=== PATIENT | female | born 1955 | race Caucasian/White ===

== ENCOUNTER 2022-01-01 19:56 | Inpatient (IN) ==
[2022-01-01 20:20] LABS: Basophils # (auto) 0.05 K/uL (0-0.2); Basophils % (auto) 0.3 %; Eosinophils # (auto) 0.37 K/uL (0-0.5); Eosinophils % (auto) 2.3 %; Hematocrit (blood only) 43.4 % (37-47); Hemoglobin 14.7 g/dL (12.0-16.0); Immature Granulocytes # (auto) 0.05 K/uL (0.00-0.02); Immature Granulocytes % (auto) 0.3 %; Lymphocytes # (auto) 3.39 K/uL (1.2-3.4); Lymphocytes % (auto) 20.8 %; Mean Corpuscular Hemoglobin 30.9 pg (25-34); Mean Corpuscular Hgb Conc 33.9 g/dL (32-36); Mean Corpuscular Volume 91.4 fL (80-100); Mean Platelet Volume 9.8 fL (7.4-10.4); Monocytes # (auto) 0.83 K/uL (0.11-0.59); Monocytes % (auto) 5.1 %; Neutrophils # (auto) 11.58 K/uL (1.4-6.5); Neutrophils % (auto) 71.2 %; Platelet Count 240 K/uL (130-400); RDW Coefficient of Variation 14.2 % (11.5-14.5); RDW Standard Deviation 47.9 fL (36.4-46.3); Red Blood Count 4.75 M/uL (4.2-5.4); White Blood Count 16.27 K/uL (4.8-10.8)
[2022-01-01 20:35] LABS: Partial Thromboplastin Ratio 0.9; Partial Thromboplastin Time 24.9 Seconds (21.0-31.0); Prothrombin Time 10.6 Seconds (9.0-12.0)
[2022-01-01] MEDS ORDERED: NITROGLYCERIN SL 0.4 MG/TAB TAB SL STA (20:36)
--- NOTE | 2022-01-01 20:40 | Emergency Department Note ---
Impression & Plan Atypical chest pain, Hypokalemia, Elevated lipase, Hypomagnesemia ED Provider Note Provider: Michael Rivera MD DATE OF SERVICE: 01/01/2022 CHIEF COMPLAINT: Chest, arm, throat pain HISTORY OF PRESENT ILLNESS: Patient is a 66-year-old female past medical history of hypertension, hyperlipidemia, and diabetes presenting here today reporting developing yesterday pain sensation in her bilateral neck and throat. States today around lunchtime she did experience significant pressure across her c entral chest in addition as well as some in the arms. States it does not hurt to move or take a deep breath. She denies any falls or trauma. Denies any new leg swelling although has some mild chronic right leg swelling. Patient denies a significant sore throat or fevers. Denies a history of similar. Patient states she does unfortunately continue to smoke. Patient states she did take 2 regular strength aspirin earlier today without change in symptoms. No significant shortness of breath reported. Patient denies a cardiac history and states she last had a stress test in 2012 although symptoms were different at that time. No exertional symptoms reported. REVIEW OF SYSTEMS: A total of 10 review of systems was obtained and negative except as stated above in the HPI. PAST MEDICAL HISTORY: As noted above MEDICATIONS: Reviewed home medications SOCIAL HISTORY: Smoker, lives at home and takes care of PHYSICAL EXAM: GENERAL: alert and oriented in no acute distress on stretcher Head: normocephalic and atraumatic EYES: No injection, discharge or icterus. PERRL, EOMI. NECK: Trachea midline. Supple. ENT: Mucous membranes pink and moist. Pharynx without exudate or significant swelling with trace erythema. LUNGS: Airway patent. No retractions. Breath sounds clear with good air entry bilaterally. HEART: Regular rate and rhythm. No chest wall tenderness ABDOMEN: Soft and non-tender, without guarding or rebound. SKIN: Acyanotic, warm, dry, without rashes EXTREMITIES: Without swelling, tenderness or deformity NEUROLOGICAL: No focal deficits. No aphasia. No facial droop or slurred speech. Ambulatory. EK bpm normal sinus rhythm. No PVC or PAC. Left axis noted without acute ST segment elevation. QTc 493. CONTINUOUS CARDIAC MONITORING: was ordered and showed a heart rate of 80s-90s bpm in normal sinus rhythm Patient's laboratory studies and imaging reviewed. Differential includes Cardiac ischemia, aortic dissection, pulmonary embolism, pneumothorax, pneumonia, pericarditis, myocarditis, esophageal rupture, GERD, cholecystitis, pancreatitis, musculoskeletal, as well as other pathologies. IMPRESSION/MEDICAL DECISION MAKING: Patient presents with some atypical chest pressure symptoms concerning given her risk factors for ACS. Patient not significantly hypoxic here lower suspicion at this time for PE or fluid overload. Chest x-ray without evidence of pneumonia pneumothorax per radiology. Lower suspicion at this time for acute aortic dissection. Do not see evidence of FO[employer] EDITOR, RPA, or meningismus on exam. Patient does initially have a leukocytosis of 16 today. Hypokalemia of 2.8 is noted. Troponin here is undetectable. LFTs not abnormal. Lipase is interestingly noted to be elevated but denies significant abdominal pain or nausea or vomiting. Patient took 2 doses of full dose aspirin earlier. Tried a nitro here to see if this would improve her symptoms. Nonreproducible chest discomfort initially however if the nitroglycerin the patient states she no longer pain at rest but with any movement or deep breath the pain became increased. Given her risk factors does have an elevated heart score. Discussed with the patient further observation here. Potassium replacement is ordered as well as potassium replacement. Lower suspicion for pancreatitis given the lack of abdominal symptoms including nausea. Will complete a CT of the chest as well as abdomen pelvis given the lipase as well as now her pleuritic chest d iscomfort. CTs as below are without significant findings. Given testing the patient's pain may be musculoskeletal but with her risk factors and elevated heart score discussed with her further observation here at the hospital. She will require continued electrolyte repletion. Hospitalist contacted. DIAGNOSIS: Atypical chest pain, hypokalemia, elevated lipase, hypomagnesemia DISPOSITION: Hospitalist will evaluate Patient was agreeable with this plan. Preliminary Findings Only See Final Report For Complete Findings CTA CHEST: Comparison to CT abdomen from January 23, 2008. The pulmonary arterial tree is well-opacified with contrast. No pulmonary emboli are identified. The thoracic aorta is mildly calcified but nondilated. There is no aneurysm or dissection. The heart is not enlarged. No pericardial effusion is seen. Mild coronary calcification is present. Lungs are well expanded with a small amount of linear scarring or subsegmental atelectasis in the left costophrenic angle and slight central bronchial wall thickening suggesting mild bronchitis. No acute airspace infiltrate, pneumothorax, or pleural effusion is identified. Moderate to severe multilevel osteophytosis is seen throughout the thoracic spine. No acute fracture or destructive bone lesion is identified. Limited images of the upper abdomen demonstrate partial visualization of the 3.7 cm cyst in the liver, unchanged. Radiologist: Michael Layton MD Study ready at 22:11 and initial results transmitted at 22:38 Preliminary Findings Only See Final Report For Complete Findings CT ABDOMEN & PELVIS With Contrast: The pancreas appears unremarkable. No signs of acute pancreatitis are pancreatic duct dilation There is fatty infiltration of the liver and hepatomegaly with the liver measuring 25 cm craniocaudad. There is a lobular 4.3 cm simple cyst in the left liver lobe centrally, larger than previous when it measured 2.8 cm. The gallbladder has been removed. No biliary duct dilation or choledocholithiasis is identified. The kidneys enhance symmetrically with contrast. There is a simple cyst on the right measuring 1.7 cm. No follow up is necessary per no hydronephrosis or ureterolithiasis is seen. The appendix is normal. Bowel loops are nondilated. There is moderate diverticulosis of the sigmoid colon. No acute inflammatory process is seen involving the bowel. No pneumoperitoneum or free fluid. The abdominal aorta is heavily calcified but nondilated. The uterus, adnexa, and urinary bladder appear within normal limits. Moderate to severe degenerative changes throughout the spine. No acute fracture or subluxation is identified. Radiologist: Michael Layton MD Study ready at 22:13 and initial results transmitted at 22:49 Past Med/Surg History Social History Smoking Status: Current every day smoker Tobacco Type: Cigarettes Feels Safe at Home: Yes Allergies Allergies Allergy/AdvReac Type Severity Reaction Status Date / Time Penicillins Allergy RASH Verified 01/01/22 21:49 Home Meds Home Medications Medication Instructions Recorded Confirmed aspirin 81 mg tablet,delayed 81 mg PO PM 01/01/22 01/01/22 release atenolol 100 mg tablet 100 mg PO QPM 01/01/22 01/01/22 atorvastatin 40 mg tablet 40 mg PO QPM 01/01/22 01/01/22 chlorthalidone 50 mg tablet 50 mg PO QPM 01/01/22 01/01/22 cholecalciferol (vitamin D3) 25 25 mcg PO DAILY 01/01/22 01/01/22 mcg (1,000 unit) tablet (Vitamin D3) coenzyme Q10 100 mg capsule (Co 100 mg PO DAILY 01/01/22 01/01/22 Q-10) furosemide 20 mg tablet 40 mg PO DAILY 01/01/22 01/01/22 krill 1,000 mg-omega-3 170 mg-dha 1 cap PO DAILY 01/01/22 01/01/22 50 mg-epa 80 [id number] capsule (krill oil) losartan 100 mg tablet 100 mg PO DAILY 01/01/22 01/01/22 meclizine 25 mg tablet 25 mg PO TID PRN 01/01/22 01/01/22 metformin 500 mg tablet,extended 2,000 mg PO QPM 01/01/22 01/01/22 release 24 hr multivitamin 1 tab PO DAILY 01/01/22 01/01/22 potassium chloride 10 mEq 10 meq PO BID 01/01/22 01/01/22 capsule,extended release Results & Data (ED) Vital Signs Vital Signs - 24 hr 01/01/22 20:01 01/01/22 20:02 01/01/22 20:45 Temperature 36.6 C Temperature Source Temporal Artery Scan Pulse Rate 82 88 Pulse Rate [Apical] 82 Pulse Rate from SpO2 Sensor Pulse Rhythm Regular Respiratory Rate 21 18 19 Respiratory Depth Normal Blood Pressure 142/81 H Blood Pressure [Right Arm] 117/65 Blood Pressure Mean 101 Blood Pressure Mean [Right Arm] 82 Pulse Oximetry 100 94 92 Oxygen Delivery Method Room Air Room Air Room Air Sepsis Recent Fever Within 48 Hours No Sepsis New/Unexplained Change in Mental Status No Sepsis Action Taken by Nursing No Action Required 01/01/22 21:30 01/01/22 21:45 01/01/22 22:04 Temperature Temperature Source Pulse Rate 78 78 78 Pulse Rate [Apical] Pulse Rate from SpO2 Sensor Pulse Rhythm Respiratory Rate 23 25 H 25 H Respiratory Depth Blood Pressure 123/62 104/51 L 123/72 Blood Pressure [Right Arm] Blood Pressure Mean 82 68 89 Blood Pressure Mean [Right Arm] Pulse Oximetry 94 93 93 Oxygen Delivery Method Room Air Room Air Room Air Sepsis Recent Fever Within 48 Hours Sepsis New/Unexplained Change in Mental Status Sepsis Action Taken by Nursing 01/01/22 22:15 Temperature Temperature Source Pulse Rate Pulse Rate [Apical] Pulse Rate from SpO2 Sensor 80 Pulse Rhythm Respiratory Rate Respiratory Depth Blood Pressure 102/47 L Blood Pressure [Right Arm] Blood Pressure Mean 65 Blood Pressure Mean [Right Arm] Pulse Oximetry 95 Oxygen Delivery Method Room Air Sepsis Recent Fever Within 48 Hours Sepsis New/Unexplained Change in Mental Status Sepsis Action Taken by Nursing Laboratory Data Result diagrams: 01/01/22 20:12 01/01/22 20:12 Lab Results 01/01/22 01/01/22 01/01/22 Range/Units 20:01 20:12 20:12 WBC 16.27 H (4.8-10.8) K/uL RBC 4.75 (4.2-5.4) M/uL Hgb 14.7 (12.0-16.0) g/dL Hct 43.4 (37-47) % MCV 91.4 (80-100) fL MCH 30.9 (25-34) pg MCHC 33.9 (32-36) g/dL RDW Std Deviation 47.9 H (36.4-46.3) fL RDW Coeff of Janet 14.2 (11.5-14.5) % Plt Count 240 (130-400) K/uL MPV 9.8 (7.4-10.4) fL Immature Gran % (Auto) 0.3 % Neut % (Auto) 71.2 % Lymph % (Auto) 20.8 % Guthrie % (Auto) 5.1 % Eos % (Auto) 2.3 % Baso % (Auto) 0.3 % Neut # (Auto) 11.58 H (1.4-6.5) K/uL Lymph # (Auto) 3.39 (1.2-3.4) K/uL Guthrie # (Auto) 0.83 H (0.11-0.59) K/uL Eos # (Auto) 0.37 (0-0.5) K/uL Baso # (Auto) 0.05 (0-0.2) K/uL Immature Gran # (Auto) 0.05 H (0.00-0.02) K/uL PT (9.0-12.0) Seconds INR (0.9-1.1) APTT (21.0-31.0) Seconds PTT Ratio Sodium (136-145) mmol/L Potassium (3.5-5.1) mmol/L Chloride (98-107) mmol/L Carbon Dioxide (21-32) mmol/L Anion Gap (3-11) BUN (6-23) mg/dl Creatinine (0.6-1.2) mg/dl Est Cr Clr Drug Dosing ml/min Est GFR ( Amer) ml/min Est GFR (Non-Af Amer) ml/min BUN/Creatinine Ratio (10-20) Glucose (70-99(Fasting)) mg/dl Calcium (8.5-10.1) mg/dl Magnesium 1.4 L (1.7-2.4) mg/dl Total Bilirubin (0.2-1.0) mg/dl AST (13-39) U/L ALT (7-52) U/L Alkaline Phosphatase (34-104) U/L Troponin I (0-0.04) ng/ml Total Protein (6.0-8.3) gm/dl Albumin (3.4-5.0) gm/dl Globulin (2.5-4.0) gm/dl Albumin/Globulin Ratio (0.9-2) Lipase (11-82) U/L HCG, Qual Negative (Negative) Urine Color Urine Appearance (Clear) Urine pH (4.5-7.5) Ur Specific [place] (1.000-1.030) Urine Protein (Negative) Urine Glucose (UA) (Negative) Urine Ketones (Negative) Urine Blood (Negative) Urine Nitrite (Negative) Urine Bilirubin (Negative) Urine Urobilinogen (Negative) Ur Leukocyte Esterase (Negative) SARS-CoV-2, RNA, NAAT (NEGATIVE) 01/01/22 01/01/22 01/01/22 Range/Units 20:12 20:12 20:50 WBC (4.8-10.8) K/uL RBC (4.2-5.4) M/uL Hgb (12.0-16.0) g/dL Hct (37-47) % MCV (80-100) fL MCH (25-34) pg MCHC (32-36) g/dL RDW Std Deviation (36.4-46.3) fL RDW Coeff of Janet (11.5-14.5) % Plt Count (130-400) K/uL MPV (7.4-10.4) fL Immature Gran % (Auto) % Neut % (Auto) % Lymph % (Auto) % Guthrie % (Auto) % Eos % (Auto) % Baso % (Auto) % Neut # (Auto) (1.4-6.5) K/uL Lymph # (Auto) (1.2-3.4) K/uL Guthrie # (Auto) (0.11-0.59) K/uL Eos # (Auto) (0-0.5) K/uL Baso # (Auto) (0-0.2) K/uL Immature Gran # (Auto) (0.00-0.02) K/uL PT 10.6 (9.0-12.0) Seconds INR 1.0 (0.9-1.1) APTT 24.9 (21.0-31.0) Seconds PTT Ratio 0.9 Sodium 140 (136-145) mmol/L Potassium 2.8 L (3.5-5.1) mmol/L Chloride 95 L (98-107) mmol/L Carbon Dioxide 36 H (21-32) mmol/L Anion Gap 9 (3-11) BUN 25 H (6-23) mg/dl Creatinine 0.94 (0.6-1.2) mg/dl Est Cr Clr Drug Dosing 65.0 ml/min Est GFR ( Amer) 72.8 ml/min Est GFR (Non-Af Amer) 62.8 ml/min BUN/Creatinine Ratio 26.6 H (10-20) Glucose 136 H (70-99(Fasting)) mg/dl Calcium 9.6 (8.5-10.1) mg/dl Magnesium (1.7-2.4) mg/dl Total Bilirubin 0.5 (0.2-1.0) mg/dl AST 20 (13-39) U/L ALT 20 (7-52) U/L Alkaline Phosphatase 72 (34-104) U/L Troponin I < 0.03 (0-0.04) ng/ml Total Protein 7.6 (6.0-8.3) gm/dl Albumin 4.6 (3.4-5.0) gm/dl Globulin 3.0 (2.5-4.0) gm/dl Albumin/Globulin Ratio 1.5 (0.9-2) Lipase 267 H (11-82) U/L HCG, Qual (Negative) Urine Color Urine Appearance (Clear) Urine pH (4.5-7.5) Ur Specific [place] (1.000-1.030) Urine Protein (Negative) Urine Glucose (UA) (Negative) Urine Ketones (Negative) Urine Blood (Negative) Urine Nitrite (Negative) Urine Bilirubin (Negative) Urine Urobilinogen (Negative) Ur Leukocyte Esterase (Negative) SARS-CoV-2, RNA, NAAT NEGATIVE (NEGATIVE) 01/01/22 Range/Units 21:23 WBC (4.8-10.8) K/uL RBC (4.2-5.4) M/uL Hgb (12.0-16.0) g/dL Hct (37-47) % MCV (80-100) fL MCH (25-34) pg MCHC (32-36) g/dL RDW Std Deviation (36.4-46.3) fL RDW Coeff of Janet (11.5-14.5) % Plt Count (130-400) K/uL MPV (7.4-10.4) fL Immature Gran % (Auto) % Neut % (Auto) % Lymph % (Auto) % Guthrie % (Auto) % Eos % (Auto) % Baso % (Auto) % Neut # (Auto) (1.4-6.5) K/uL Lymph # (Auto) (1.2-3.4) K/uL G[place]rie # (Auto) (0.11-0.59) K/uL Eos # (Auto) (0-0.5) K/uL Baso # (Auto) (0-0.2) K/uL Immature Gran # (Auto) (0.00-0.02) K/uL PT (9.0-12.0) Seconds INR (0.9-1.1) APTT (21.0-31.0) Seconds PTT Ratio Sodium (136-145) mmol/L Potassium (3.5-5.1) mmol/L Chloride (98-107) mmol/L Carbon Dioxide (21-32) mmol/L Anion Gap (3-11) BUN (6-23) mg/dl Creatinine (0.6-1.2) mg/dl Est Cr Clr Drug Dosing ml/min Est GFR ( Amer) ml/min Est GFR (Non-Af Amer) ml/min BUN/Creatinine Ratio (10-20) Glucose (70-99(Fasting)) mg/dl Calcium (8.5-10.1) mg/dl Magnesium (1.7-2.4) mg/dl Total Bilirubin (0.2-1.0) mg/dl AST (13-39) U/L ALT (7-52) U/L Alkaline Phosphatase (34-104) U/L Troponin I (0-0.04) ng/ml Total Protein (6.0-8.3) gm/dl Albumin (3.4-5.0) gm/dl Globulin (2.5-4.0) gm/dl Albumin/Globulin Ratio (0.9-2) Lipase (11-82) U/L HCG, Qual (Negative) Urine Color Yellow Urine Appearance Clear (Clear) Urine pH 6.0 (4.5-7.5) Ur Specific [place] 1.012 (1.000-1.030) Urine Protein Negative (Negative) Urine Glucose (UA) Negative (Negative) Urine Ketones Negative (Negative) Urine Blood Negative (Negative) Urine Nitrite Negative (Negative) Urine Bilirubin Negative (Negative) Urine Urobilinogen Negative (Negative) Ur Leukocyte Esterase Negative (Negative) SARS-CoV-2, RNA, NAAT (NEGATIVE) Administered Medications Potassium Chloride (K Rob / Wtr) 10 meq in 100 mls @ 100 mls/hr IV Q1H [facility]; Protocol Stop: 01/01/22 22:59 Last Infusion: 01/01/22 22:35 Dose: 0 mls/hr Documented by: [id number] Admin: 01/01/22 21:20 Dose: 100 mls/hr Documented by: [id number] Discontinued Medications Magnesium Sulfate/Dextrose (Magnesium Sulfate / D5w) 1 gm in 100 mls @ 200 mls/hr IV Q30M [facility] Stop: 01/01/22 22:44 Last Admin: 01/01/22 22:36 Dose: 200 mls/hr Documented by: [id number] Ioversol (Optiray 320 125ml) 120 ml IV ONCE ONE Stop: 01/01/22 22:01 Last Admin: 01/01/22 22:00 Dose: 120 ml Documented by: [id number] Nitroglycerin (Nitroglycerin Sl 0.4 Mg/Tab Tab) 0.4 mg SL NOW STA Stop: 01/01/22 20:37 Last Admin: 01/01/22 20:42 Dose: 0.4 mg Documented by: [id number] Imaging Data Radiologist's Impression: Chest X-Ray 01/01/22 20:01 SINGLE VIEW CHEST CLINICAL HISTORY: Atypical chest pain. FINDINGS: An AP, portable, upright chest radiograph is compared to study dated 06/30/2013. The examination is degraded by portable technique and apical lordotic positioning. The cardiomediastinal silhouette is unremarkable noting at herosclerotic calcification of the thoracic aorta. Left basilar opacities are typical for atelectasis. The lungs and pleural spaces are otherwise clear. No pneumothorax is seen. The skeletal structures are osteopenic. The bony thorax is grossly intact. Arthritic change is seen in the shoulders. Degenerative change and scoliosis is noted in the thoracic spine. IMPRESSION: No acute cardiopulmonary abnormality. ACT 112: Negative or not required by law. Electronically signed by: Armando Rios M.D. 01/01/2022 8:50 PM Discharge Plan Visit Data Chief Complaint: Chest Pain Stated Complaint: SOB, CHEST PAIN ED Provider: Michael Rivera Discharge Problem: Atypical chest pain, Hypokalemia, Elevated lipase, Hypomagnesemia Patient Disposition: Being Evaluated by Hospitalist Forms Stand Alone Forms: [facility] Prescriptions Prescriptions: No Action multivitamin Tablet 1 tab PO DAILY RF: 0 atorvastatin 40 mg tablet 40 mg PO QPM RF: 0 potassium chloride 10 mEq capsule, extended release 10 meq PO BID RF: 0 atenolol 100 mg tablet 100 mg PO QPM RF: 0 chlorthalidone 50 mg tablet 50 mg PO QPM RF: 0 aspirin [Aspir-Low] 81 mg Tablet,Delayed Release (Dr/Ec) 81 mg PO PM RF: 0 meclizine 25 mg Tablet 25 mg PO TID PRN (Reason: dizzy) RF: 0 furosemide 20 mg tablet 40 mg PO DAILY RF: 0 losartan 100 mg tablet 100 mg PO DAILY RF: 0 metformin 500 mg tablet extended release 24 hr 2,000 mg PO QPM RF: 0 coenzyme Q10 [Co Q-10] 100 mg Capsule 100 mg PO DAILY RF: 0 cholecalciferol (vitamin D3) [Vitamin D3] 25 mcg (1,000 unit) Tablet 25 mcg PO DAILY RF: 0 [id number] [krill oil] 1,538-171-60-80 mg Capsule 1 cap PO DAILY RF: 0 Referrals Referrals: Pippa Reyna, [Primary Care Provider] -
[2022-01-01 20:42] LABS: Troponin I < 0.03 ng/ml (0-0.04)
[2022-01-01 20:45] LABS: Alanine Aminotransferase 20 U/L (7-52); Albumin Globulin Ratio 1.5 (0.9-2); Albumin Level 4.6 gm/dl (3.4-5.0); Alkaline Phosphatase 72 U/L (34-104); Anion Gap 9 (3-11); Aspartate Aminotransferase 20 U/L (13-39); BUN Creatinine Ratio 26.6 (10-20); Bilirubin,Total 0.5 mg/dl (0.2-1.0); Blood Urea Nitrogen 25 mg/dl (6-23); Calcium 9.6 mg/dl (8.5-10.1); Carbon Dioxide 36 mmol/L (21-32); Chloride 95 mmol/L (98-107); Est GFR (African American) 72.8 ml/min; Est GFR (Non-African American) 62.8 ml/min; Glucose 136 mg/dl (70-99(Fasting)); Lipase 267 U/L (11-82); Potassium 2.8 mmol/L (3.5-5.1); Sodium 140 mmol/L (136-145); Total Protein 7.6 gm/dl (6.0-8.3)
[2022-01-01 20:49] LABS: Pregnancy Test, Serum Negative (Negative)
--- NOTE | 2022-01-01 20:51 | XRay Report ---
SINGLE VIEW CHEST CLINICAL HISTORY: Atypical chest pain. FINDINGS: An AP, portable, upright chest radiograph is compared to study dated 06/30/2013. The examina tion is degraded by portable technique and apical lordotic positioning. The cardiomediastinal silhoue tte is unremarkable noting atherosclerotic calcification of the thoracic aorta. Left basilar opacitie s are typical for atelectasis. The lungs and pleural spaces are otherwise clear. No pneumothorax is s een. The skeletal structures are osteopenic. The bony thorax is grossly intact. Arthritic change is s een in the shoulders. Degenerative change and scoliosis is noted in the thoracic spine. IMPRESSION: No acute cardiopulmonary abnormality. ACT 112: Negative or not required by law. Electronically signed by: Armando Rios M.D. 01/01/2022 8:50 PM
[2022-01-01] MEDS: POTASSIUM CHLORIDE / WTR 10 MEQ/100 ML PLCT IV SCH ×2 (21:20→22:36)
[2022-01-01 21:49] LABS: Appearance Urine Clear (Clear); Bilirubin Urine Negative (Negative); Blood Urine Negative (Negative); Color Urine Yellow; Glucose Urine UA Negative (Negative); Ketones Urine Negative (Negative); Leukocyte Esterase Urine Negative (Negative); Nitrite Urine Negative (Negative); Protein Urine Negative (Negative); Specific Gravity Urine 1.012 (1.000-1.030); Urobilinogen Urine Negative (Negative)
[2022-01-01] MEDS ORDERED: OPTIRAY 320 125ml IV ONE (22:00)
[2022-01-01] MEDS: MAGNESIUM SULFATE / D5W 1 GM/100 ML BAG IV SCH (22:36)
[2022-01-01] MEDS ORDERED: POTASSIUM CHLORIDE CRTAB 20 MEQ TABCR PO STA (22:36)
[2022-01-01] MEDS ORDERED: LACTATED RINGER'S 1,000 ML IV ONE (22:37)
--- NOTE | 2022-01-01 23:25 | History & Physical Report ---
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 PCU H2 terri trial Follow troponin TTE Re: Chest pain Cardiology consult if with subsequent troponin elevation/abnormality on TTE Replace electrolytes, hold home diuretic for now Basal insulin, ISS BG goal 1 10-1 40, carb count coverage, update hemoglobin A1c Nicotine patch as needed DVT prophylaxis per Lovenox subcu Full code Text document was generated using Froont voice recognition software. It may contain grammatical or spelling errors. Kindly contact undersigned for clarification of any documentation item in question. History of Present Illness Chief Complaint: Throat pain, chest pain Primary Care Provider: Pippa Reyna DO History obtained from patient and records. 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 Last confinement June 2013 for left-sided chest pain. No inducible ischemia on stress echo. Yesterday, patient noted throat discomfort. Throat felt bruised. No recollection of pharyngeal trauma or intake of unusual food. No fever, no chills. No swallowing issues as per patient. Today, throat discomfort felt like it was going down to her chest without shortness of breath. No prior attacks. Some relief with nitroglycerin administered at the ER. MEDICAL HISTORY: As above. SURGICAL HISTORY: Tubal ligation, carpal tunnel surgery, tonsillectomy, cholecystectomy, upper eyelid revision FAMILY HISTORY: Hypertension, diabetes, heart disease. 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 Allergies Allergy/AdvReac Type Severity Reaction Status Date / Time Penicillins Allergy RASH Verified 01/01/22 21:49 Home Medications Medication Instructions Recorded Confirmed Type aspirin 81 mg tablet,delayed 81 mg PO PM 01/01/22 01/01/22 History release atenolol 100 mg tablet 100 mg PO QPM 01/01/22 01/01/22 History atorvastatin 40 mg tablet 40 mg PO QPM 01/01/22 01/01/22 History chlorthalidone 50 mg tablet 50 mg PO QPM 01/01/22 01/01/22 History cholecalciferol (vitamin D3) 25 25 mcg PO DAILY 01/01/22 01/01/22 History mcg (1,000 unit) tablet (Vitamin D3) coenzyme Q10 100 mg capsule (Co 100 mg PO DAILY 01/01/22 01/01/22 History Q-10) furosemide 20 mg tablet 40 mg PO DAILY 01/01/22 01/01/22 History krill 1,000 mg-omega-3 170 mg-dha 1 cap PO DAILY 01/01/22 01/01/22 History 50 mg-epa 80 em-aludho-xwfbo capsule (krill oil) losartan 100 mg tablet 100 mg PO DAILY 01/01/22 01/01/22 History meclizine 25 mg tablet 25 mg PO TID PRN 01/01/22 01/01/22 History metformin 500 mg tablet,extended 2,000 mg PO QPM 01/01/22 01/01/22 History release 24 hr multivitamin 1 tab PO DAILY 01/01/22 01/01/22 History potassium chloride 10 mEq 10 meq PO BID 01/01/22 01/01/22 History capsule,extended release Past Med/Surg History Social History Smoking Status: Current every day smoker Tobacco Type: Cigarettes Hx Alcohol Use: No Hx Substance Use: No Preferred Language: [place] Citizen Communication Ability: Effective Reservations Manager Required: No Beliefs That Will Affect Care: None Current Living Situation: Spouse Current Living Situation Comment: patient is primary caregiver of her who is disabled and blind Other Information That Helps Us Care for You: No Feels Safe at Home: Yes Safety Concerns: Feels Safe At This Time Review of Systems Review of Systems: As per HPI, all 10 systems reviewed, all other ROS negative Physical Exam Physical Exam: GENERAL: Comfortable, pleasant, morbidly obese, no respiratory distress SKIN: Normal color, warm HEENT: Bespectacled, Osborn palpebral conjunctivae, no ptosis, dry buccal mucosa NECK : Supple, short neck, no tenderness CHEST : CTA, anterior chest wall tenderness HEART : RRR, no obvious murmurs ABDOMEN: Some distention, nontender EXTREMITIES : Minimal LE swelling, no LE tenderness, no other conspicuous deformities noted NEUROLOGIC : Coherent, no facial asymmetry, no other gross focality Results & Data Results & Data ([facility]) Vital Signs (Past 12 Hours) Vital Signs Temp Pulse Pulse Resp BP BP Pulse Ox 01/01/22 22:15 102/47 L 95 01/01/22 22:04 78 25 H 123/72 93 01/01/22 21:45 78 25 H 104/51 L 93 01/01/22 21:30 78 23 123/62 94 01/01/22 20:45 82 19 117/65 92 01/01/22 20:02 36.6 C 88 18 142/81 H 94 01/01/22 20:01 82 21 100 Laboratory Results Laboratory Results WBC 16.27 K/uL (4.8-10.8) H 01/01/22 20:12 RBC 4.75 M/uL (4.2-5.4) 01/01/22 20:12 Hgb 14.7 g/dL (12.0-16.0) 01/01/22 20:12 Hct 43.4 % (37-47) 01/01/22 20:12 MCV 91.4 fL (80-100) 01/01/22 20:12 MCH 30.9 pg (25-34) 01/01/22 20:12 MCHC 33.9 g/dL (32-36) 01/01/22 20:12 RDW Std Deviation 47.9 fL (36.4-46.3) H 01/01/22 20:12 RDW Coeff of Janet 14.2 % (11.5-14.5) 01/01/22 20:12 Plt Count 240 K/uL (130-400) 01/01/22 20:12 MPV 9.8 fL (7.4-10.4) 01/01/22 20:12 Immature Gran % (Auto) 0.3 % 01/01/22 20:12 Neut % (Auto) 71.2 % 01/01/22 20:12 Lymph % (Auto) 20.8 % 01/01/22 20:12 [place] % (Auto) 5.1 % 01/01/22 20:12 Eos % (Auto) 2.3 % 01/01/22 20:12 Baso % (Auto) 0.3 % 01/01/22 20:12 Neut # (Auto) 11.58 K/uL (1.4-6.5) H 01/01/22 20:12 Lymph # (Auto) 3.39 K/uL (1.2-3.4) 01/01/22 20:12 [place] # (Auto) 0.83 K/uL (0.11-0.59) H 01/01/22 20:12 Eos # (Auto) 0.37 K/uL (0-0.5) 01/01/22 20:12 Baso # (Auto) 0.05 K/uL (0-0.2) 01/01/22 20:12 Immature Gran # (Auto) 0.05 K/uL (0.00-0.02) H 01/01/22 20:12 PT 10.6 Seconds (9.0-12.0) 01/01/22 20:12 INR 1.0 (0.9-1.1) 01/01/22 20:12 APTT 24.9 Seconds (21.0-31.0) 01/01/22 20:12 PTT Ratio 0.9 01/01/22 20:12 Sodium 140 mmol/L (136-145) 01/01/22 20:12 Potassium 2.8 mmol/L (3.5-5.1) L 01/01/22 20:12 Chloride 95 mmol/L (98-107) L 01/01/22 20:12 Carbon Dioxide 36 mmol/L (21-32) H 01/01/22 20:12 Anion Gap 9 (3-11) 01/01/22 20:12 BUN 25 mg/dl (6-23) H 01/01/22 20:12 Creatinine 0.94 mg/dl (0.6-1.2) 01/01/22 20:12 Est Cr Clr Drug Dosing 65.0 ml/min 01/01/22 20:12 Est GFR ( Amer) 72.8 ml/min 01/01/22 20:12 Est GFR (Non-Af Amer) 62.8 ml/min 01/01/22 20:12 BUN/Creatinine Ratio 26.6 (10-20) H 01/01/22 20:12 Glucose 136 mg/dl (70-99(Fasting)) H 01/01/22 20:12 Calcium 9.6 mg/dl (8.5-10.1) 01/01/22 20:12 Magnesium 1.4 mg/dl (1.7-2.4) L 01/01/22 20:01 Total Bilirubin 0.5 mg/dl (0.2-1.0) 01/01/22 20:12 AST 20 U/L (13-39) 01/01/22 20:12 ALT 20 U/L (7-52) 01/01/22 20:12 Alkaline Phosphatase 72 U/L (34-104) 01/01/22 20:12 Troponin I < 0.03 ng/ml (0-0.04) 01/01/22 20:12 Total Protein 7.6 gm/dl (6.0-8.3) 01/01/22 20:12 Albumin 4.6 gm/dl (3.4-5.0) 01/01/22 20:12 Globulin 3.0 gm/dl (2.5-4.0) 01/01/22 20:12 Albumin/Globulin Ratio 1.5 (0.9-2) 01/01/22 20:12 Lipase 267 U/L (11-82) H 01/01/22 20:12 HCG, Qual Negative (Negative) 01/01/22 20:12 Urine Color Yellow 01/01/22 21:23 Urine Appearance Clear (Clear) 01/01/22 21:23 Urine pH 6.0 (4.5-7.5) 01/01/22 21:23 Ur Specific [place] 1.012 (1.000-1.030) 01/01/22 21: Urine Protein Negative (Negative) 01/01/22 21: Urine Glucose (UA) Negative (Negative) 01/01/22 21: Urine Ketones Negative (Negative) 01/01/22 21: Urine Blood Negative (Negative) 01/01/22 21: Urine Nitrite Negative (Negative) 01/01/22 21: Urine Bilirubin Negative (Negative) 01/01/22 21: Urine Urobilinogen Negative (Negative) 01/01/22 21:23 Ur Leukocyte Esterase Negative (Negative) 01/01/22 21:23 SARS-CoV-2, RNA, NAAT NEGATIVE (NEGATIVE) 01/01/22 20:50 Impressions Chest X-Ray 01/01/22 20:01 SINGLE VIEW CHEST CLINICAL HISTORY: Atypical chest pain. FINDINGS: An AP, portable, upright chest radiograph is compared to study dated 06/30/2013. The examination is degraded by portable technique and apical lordotic positioning. The cardiomediastinal silhouette is unremarkable noting atherosclerotic calcification of the thoracic aorta. Left basilar opacities are typical for atelectasis. The lungs and pleural spaces are otherwise clear. No pneumothorax is seen. The skeletal structures are osteopenic. The bony thorax is grossly intact. Arthritic change is seen in the shoulders. Degenerative change and scoliosis is noted in the thoracic spine. IMPRESSION: No acute cardiopulmonary abnormality. ACT 112: Negative or not required by law. Electronically signed by: Armando Rios M.D. 01/01/2022 8:[address] chest initial read: The pulmonaryarterial tree iswell-opacified with contrast. No pulmonaryemboli are identified. The thoracic aorta is mildlycalcified but nondilated. There is no aneurysmor dissection. The heart is not enlarged. No pericardial effusion is seen. Mild coronarycalcification is present. Lungs are well expanded with a small amount of linear scarring or subsegmental atelectasis in the left costophrenic angle and slight central bronchial wall thickening suggesting mild bronchitis. No acute airspace infiltrate, pneumothorax, or pleural effusion is identified. Moderate to severe multilevel osteophytosis is seen throughout the thoracic spine. No acute fracture or destructive bone lesion is identified. Limited images of the upper abdomen demonstrate partial visualization of the 3.7 cmcyst in the liver, unchanged. Soft tissue neck CT initial read: 3.1 x 1.4 x 1.6 cmmass along the inferior aspect of left parotid gland and additional 1.6 x 0.7 x 0.8 cm mass in region of the lobe of left parotid gland. The larger lesion is favored to represent lymphadenopathyadjacent to the parotid gland and the smaller lesion is favored to be within the parotid gland. Neoplasmnot excluded. Consider correlation with MRI and/or tissue sampling as clinicallywarranted. Glottis is closed during exam, limiting evaluation. Relative effacement of left piriformsinus, nonspecific. The airways otherwise patent. Normal epiglottis. Evaluation is limited bylack of intravenous contrast. Multilevel degenerative changes of cervical spine. CT abdomen pelvis initial read: The pancreas appears unremarkable. No signs of acute pancreatitis are pancreatic duct dilation There is fattyinfiltration of the liver and hepatomegalywith the liver measuring 25 cmcraniocaudad. There is a lobular 4.3 cmsimple cyst in the left liver lobe centrally, larger than previouswhen it measured 2.8 cm. The gallbladder has been removed. No biliaryduct dilation or choledocholithiasis is identified. The kidneys enhance symmetricallywith contrast. There is a simple cyst on the right measuring 1.7 cm. No followup is necessaryper no hydronephrosis or ureterolithiasis is seen. The appendix is normal. Bowel loops are nondilated. There is moderate diverticulosis of the sigmoid colon. No acute inflammatoryprocess is seen involving the bowel. No pneumoperitoneumor free fluid. The abdominal aorta is heavilycalcified but nondilated. The uterus, adnexa, and urinarybladder appear within normal limits. Moderate to severe degenerative changes throughout the spine. No acute fracture or subluxation is identified. EKG as per my interpretation:Rate 85, NSR, LAD, LAFB, diffuse T wave abnormalities
[2022-01-01] MEDS ORDERED: FAMOTIDINE 20MG IV PUSH 20 MG/5 ML SYR IV STA (23:52)
[2022-01-01] MEDS ORDERED: traMADol HCL 50 MG TABLET PO STA (23:56)
[2022-01-02] MEDS: MAGNESIUM SULFATE / D5W 1 GM/100 ML BAG IV SCH (00:16)
[2022-01-02] MEDS ORDERED: GLUCAGON FOR INJ 1 MG VIAL SQ PRN (00:47)
[2022-01-02] MEDS ORDERED: MoRPHine SULFATE 4 MG/ML 1 ML CARP\\VIAL IV PRN (00:47)
[2022-01-02] MEDS ORDERED: NITROGLYCERIN SL 0.4 MG/TAB TAB SL PRN (00:47)
[2022-01-02] MEDS ORDERED: GLUCOSE 40% GEL 15 GM TUBE PO PRN (00:47)
[2022-01-02] MEDS ORDERED: DEXTROSE 50% 50 ML SYRINGE IV PRN (00:47)
[2022-01-02] MEDS ORDERED: PROMETHAZINE HCL 12.5 MG in SODIUM CHLORIDE 0.9% 50 ML IV PRN (00:47)
[2022-01-02] MEDS ORDERED: traMADol HCL 50 MG TABLET PO PRN (00:47)
[2022-01-02] MEDS ORDERED: CARBOHYDRATES FOR HYPOGLYCEMIA PO PRN (00:47)
[2022-01-02] MEDS ORDERED: GLUCOSE 10 TABS/TUBE PO PRN (00:47)
[2022-01-02] MEDS ORDERED: POTASSIUM CHLORIDE PWD 20 MEQ PACK PO ONE (01:00)
[2022-01-02] MEDS: INSULIN ASPART PER UNIT SC SCH ×5 (01:22→21:20)
[2022-01-02 05:35] LABS: Basophils # (auto) 0.03 K/uL (0-0.2); Basophils % (auto) 0.3 %; Eosinophils # (auto) 0.31 K/uL (0-0.5); Eosinophils % (auto) 2.7 %; Hematocrit (blood only) 38.1 % (37-47); Hemoglobin 12.6 g/dL (12.0-16.0); Immature Granulocytes # (auto) 0.03 K/uL (0.00-0.02); Immature Granulocytes % (auto) 0.3 %; Lymphocytes # (auto) 2.87 K/uL (1.2-3.4); Lymphocytes % (auto) 24.9 %; Mean Corpuscular Hemoglobin 30.5 pg (25-34); Mean Corpuscular Hgb Conc 33.1 g/dL (32-36); Mean Corpuscular Volume 92.3 fL (80-100); Mean Platelet Volume 9.6 fL (7.4-10.4); Monocytes # (auto) 0.74 K/uL (0.11-0.59); Monocytes % (auto) 6.4 %; Neutrophils # (auto) 7.55 K/uL (1.4-6.5); Neutrophils % (auto) 65.4 %; Platelet Count 192 K/uL (130-400); RDW Coefficient of Variation 14.2 % (11.5-14.5); RDW Standard Deviation 48.2 fL (36.4-46.3); Red Blood Count 4.13 M/uL (4.2-5.4); White Blood Count 11.53 K/uL (4.8-10.8)
[2022-01-02 05:56] LABS: Troponin I < 0.03 ng/ml (0-0.04)
[2022-01-02 06:00] LABS: Anion Gap 5 (3-11); BUN Creatinine Ratio 24.7 (10-20); Blood Urea Nitrogen 19 mg/dl (6-23); Calcium 8.6 mg/dl (8.5-10.1); Carbon Dioxide 30 mmol/L (21-32); Chloride 104 mmol/L (98-107); Chol HDL Ratio 3.5 (0-5); Cholesterol 77 mg/dl (0-200); Creatinine Clr Calc Pharmacy 79.4 ml/min; Est GFR (African American) 92.6 ml/min; Est GFR (Non-African American) 79.9 ml/min; Glucose 118 mg/dl (70-99(Fasting)); HDL Cholesterol 22 mg/dl; LDL Cholesterol Calculated 13 mg/dl; Magnesium 1.8 mg/dl (1.7-2.4); Potassium 3.3 mmol/L (3.5-5.1); Sodium 139 mmol/L (136-145); Triglycerides 212 mg/dl (0-150); VLDL Cholesterol 42 mg/dl (0-30)
[2022-01-02] MEDS: ACETAMINOPHEN 325 MG TAB PO PRN ×3 (06:20→21:45)
[2022-01-02 07:52] LABS: Estimated Average Glucose 143 mg/dl; Hemoglobin A1C 6.6 % (4.5-5.6)
--- NOTE | 2022-01-02 07:59 | CT Scan Report ---
CHEST CTA for PULMONARY ARTERIES CT DOSE: 1847.44 mGy.cm HISTORY: Atypical chest pain. TECHNIQUE: Multiaxial CT images of the chest were performed following the intravenous administration of contrast to evaluate the pulmonary arteries. Maximal intensity projection images were also obtaine d. A dose lowering technique was utilized adhering to the principles of ALARA. COMPARISON STUDY: None. FINDINGS: Please refer to the same day abdomen and pelvis CT for further evaluation of the abdominal structures. A few prominent mediastinal lymph nodes are noted. This includes upper right paratracheal lymph node which measures 12 x 10 mm. No hilar lymphadenopathy. Mild circumferential thickening of t he esophagus. The heart is normal in size. No pleural or pericardial effusions. The thyroid gland enh ances normally. No acute fractures within the visualized osseous structures. No evidence for an aorti c dissection or pulmonary embolus. No pneumothorax. The central airways are patent. A 3 mm subpleural groundglass nodule within the left lower lobe on image 131. A 4 mm nodular density along the right m ajor fissure at the right lung apex on image 186. This is of doubtful clinical significance. No focal lung consolidations to suggest pneumonia. Degenerative changes within the thoracic spine. IMPRESSION: 1. No evidence for pulmonary embolus. 2. Mild circumferential thickening of the esophagus. This may represent a mild esophagitis. 3. A few prominent mediastinal lymph nodes. 4. A 3 mm groundglass nodule within the left lower lobe. Please refer to below summary of Fleischner criteria recommendations for follow-up of incidental CT n odules (Essie Chaudhary, Guidelines for management of small pulmonary nodules detected on CT scans: A sta tement from the Fleischner Society, Radiology 237: [phone].) SOLID NODULES Solitary nodule size: <6 mm * Low risk patients: no follow-up needed * high risk patients: optional CT at 12 months Solitary nodule size: 6-8 mm * Low risk patients: follow-up at 6-12 months, then consider further follow-up at 18-24 months * high risk patients: initial follow-up CT at 6-12 months and then at 18-24 months if no change Solitary nodule size: >8 mm * either low or high risk patients - consider follow-up CT at 3 months, and/or CT-PET, and/or biopsy Multiple nodules size: <6 mm * Low risk patients: no routine follow-up * high risk patients: optional CT at 12 months Multiple nodules size: 6-8 mm * Low risk patients: follow-up at 3-6 months, then consider further follow-up at 18-24 months * high risk patients: follow-up at 3-6 months, then at 18-24 months if no change Multiple nodules size: >8 mm * Low risk patients: follow-up at 3-6 months, then consider further follow-up at 18-24 months * high risk patients: follow-up at 3-6 months, then at 18-24 months if no change Note: newly detected indeterminate nodule in persons 35 years of age or older. * Low risk patients: minimal or absent history of smoking and/or other known risk factors * high risk patients: history of smoking or of other known risk factors (e.g. first degree relative with lung cancer, or exposure to asbestos, radon, uranium) * if a nodule up to 8 mm is partly solid or is ground glass further follow-up is required after 24 m onths to exclude possible slow growing adenocarcinoma (DENISE) SUBSOLID NODULES Solitary pure ground-glass nodule * nodule size <6 mm - no CT follow-up required * nodule size >=6 mm - follow-up CT at 6-12 months, then every 2 years until 5 years Solitary part-solid nodule * nodule size <6 mm - no CT follow-up required * nodule size >=6 mm - follow-up CT at 3-6 months. If unchanged, and solid component remains <6 mm, then annual follow-up for 5 years Multiple subsolid nodules * nodule size <6 mm - follow-up CT at 3-6 months, consider further follow-up at 2 and 4 years if sta ble * nodule size >=6 mm - follow-up CT at 3-6 months, subsequent management based on the most suspiciou s nodule(s) ACT 112: Negative or not required by law. Electronically signed by: Anthony Figueroa M.D. 01/02/2022 7:58 AM
--- NOTE | 2022-01-02 08:06 | CT Scan Report ---
CT OF THE ABDOMEN AND PELVIS WITH CONTRAST CLINICAL HISTORY: Chest pain, elevated lipase. COMPARISON STUDY: CT of the abdomen and pelvis January 24, 2008. Pelvic ultrasound January 25, 2008. TECHNIQUE: Following IV administration of 120 mL of Optiray, axial images of the abdomen and pelvis w ere obtained from the lung bases to the proximal femurs. Images were reviewed in the axial, sagittal, and coronal planes. IV contrast was administered without complication. Automated exposure control w as utilized for the study. A dose lowering technique was utilized adhering to the principles of ROSS Anton. FINDINGS: Please note the chest CT will be reported separately. No pneumatosis, free air or portal ve nous gas is present. Hepatic steatosis is noted. 4.7 cm medial segment hepatic lesion measures water attenuation. This contains a thin septation. This has increased in size since CT of January 23, 2008. T his favors a cyst. There is no significant biliary ductal dilatation status post cholecystectomy. The spleen, adrenal glands and kidneys are unremarkable with exception of a right renal cyst. Subcentime ter hypodense lesion within the upper pole of the left kidney is too small characterize but likely re flects a cyst. Several punctate calcifications within the pancreas are noted. There is no peripancrea tic infiltration or fluid. No pancreatic ductal dilatation. No evidence for bowel obstruction. The ap pendix is normal. Colonic diverticulosis is noted without evidence for acute diverticulitis. No abdom inal or pelvic lymphadenopathy is present. No ascites or fluid collection is present. Extensive aorto iliac atherosclerotic plaque is noted without aneurysmal dilatation. No acute fracture or suspicious lesion within visualized skeletal structures. IMPRESSION: 1. No acute process within the abdomen or pelvis. 2. No evidence for acute pancreatitis. No peripancreatic fluid collection. No pancreatic ductal dilat ation. Several pancreatic parenchymal calcifications without significant pancreatic glandular atrophy . These calcifications can be seen in the setting of chronic pancreatitis. 3. Colonic diverticulosis. No evidence for acute diverticulitis. 4. No bowel obstruction. No bowel wall thickening. Normal appendix. 5. Hepatic steatosis. ACT 112: Negative or not required by law. Electronically signed by: Jose Mcadams M.D. 01/02/2022 8:04 AM
--- NOTE | 2022-01-02 08:15 | CT Scan Report ---
CT soft tissue neck wo con CLINICAL HISTORY: sore throat Technique: Axial CT images of the soft tissues of the neck were obtained following intravenous admini stration of 100 cc of Omnipaque 300. Automated dose lowering techniques and/or adjustment according t o patient size were utilized for this exam. Comparison: None available at the time of this dictation. Findings: There is a 30 x 15 x 18 mm soft tissue density mass at the inferior aspect of the right parotid gland . The oropharynx, hypopharynx, larynx, and trachea are patent. No enlarged lymph nodes are seen. The parotid glands, submandibular glands, and thyroid gland are unremarkable. Imaged portions of the brain parenchyma are unremarkable. The paranasal sinuses and mastoid air cell s are normal in appearance. Impression: 1. No mass lesion is seen in the vicinity of the oropharynx or trachea. 2. Soft tissue mass at the inferior aspect of the right parotid gland may represent a prominent lymp h node. Further evaluation with ultrasound can be considered if there is clinical suspicion. ACT 112: Negative or not required by law. Electronically signed by: Anthony Thomas M.D. 01/02/2022 8:14 AM
[2022-01-02] MEDS: ENOXAPARIN INJ 40 MG/0.4 ML SYR SQ SCH (08:41)
[2022-01-02] MEDS: LOSARTAN POTASSIUM 50 MG TAB PO SCH (08:41)
[2022-01-02] MEDS: MULTIVITAMIN TAB PO SCH (08:41)
[2022-01-02] MEDS: FAMOTIDINE 10 MG TABLET PO SCH ×2 (08:41→21:39)
[2022-01-02] MEDS: INSULIN GLARGINE SOLOSTAR 100 UNITS/ML 3 ML PEN SC SCH (08:42)
[2022-01-02] MEDS ORDERED: POTASSIUM CHLORIDE CRTAB 20 MEQ TABCR PO STA (09:37)
--- NOTE | 2022-01-02 16:18 | Hospitalist Progress Note ---
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 Of note, she was admitted in June 2013 for left-sided chest pain, no inducible ischemia on a stress echo. She is being managed for the following: #. Likely acute GERD #. 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 No recent activity of heavy work. Patient does have history of GERD. Troponin trend x3: Negative Admitting EKG: NSR with rate of 86. No acute ST or T changes appreciated. 01/02 echo: EF 55 to 60%, grade 1 diastolic dysfunction, mild TR. Patient reports chest pain getting better but is continuous in nature. Patient receiving H2 terri, will add PPI once daily. Patient advised to have small meals at a time, last meal 3 to 4 hours prior to going to bed. Avoid caffeine/chocolate. Prop up head of bed. Patient will likely need outpatient follow-up with GI. Continue to monitor over telemetry, likely DC tomorrow. #. Lung nodule Admitting chest CTA revealed 3 mm groundglass nodule within the left lower lobe. Patient made aware. Patient is smoking 10 cigarettes a day for a long time. Pt will likely need follow-up in 1 year, possible CT scan. #. Other chronic medical conditions: HTN, HLD, DM2 on oral meds, LENIN on CPAP, left parotid mass, ongoing tobacco abuse Resume/continue with home treatments as and when appropriate. Continue with sliding scale insulin. Follow-up with outpatient [facility]NT September 2021 as a scheduled. DVT prophylaxis per Lovenox subcu Full code Admission and Anticipated Discharge Date Admission Date: January 01, 2022 Subjective Patient seen and examined at bedside for follow-up of acute GERD and reproducible chest pain. Patient lying in bed, on room air, NAD, no new acute events overnight. Patient reports her throat discomfort and continues chest pain has been getting a little bit better. Patient denies any fever/headache/chills/palpitations/belly pain/acute changes in bowel or bladder habit. Physical Exam Physical Exam: GENERAL: Alert and oriented x3. NAD, on RA. Morbidly obese HEENT: No pallor, no icterus. Pupils equal, round and reactive to light. Oral mucosa moist. NECK: No JVD, no neck masses. HEART: S1 and S2 heard. Regular rate and rhythm. No murmur, no gallop. RESPIRATORY SYSTEM: Normal AP diameter. No accessory muscle use. No wheezing, no crackles. ABDOMEN: Soft, bowel sounds present, nontender, no distention. CENTRAL NERVOUS SYSTEM: No facial droop. Speech is clear. Obeys simple commands. Moves extremities. EXTREMITIES: No edema, no erythema seen. Chest: reproducible lower chest pain/tenderness Results & Data Results & Data ([facility]) Vital Signs (Past 12 Hours) Vital Signs Temp Pulse Pulse Resp BP BP Pulse Ox 01/02/22 12:00 36.8 C 64 18 93/52 L 92 01/02/22 09:20 67 14 01/02/22 09:10 64 16 01/02/22 09:00 72 20 01/02/22 08:50 72 13 94 01/02/22 08:40 79 18 01/02/22 08:30 70 18 94 01/02/22 08:20 73 15 94 01/02/22 08:10 67 16 94 01/02/22 08:00 70 16 95 01/02/22 07:50 70 19 95 01/02/22 07:40 68 15 96 01/02/22 07:30 70 15 95 01/02/22 07:20 72 11 L 95 01/02/22 07:10 68 15 94 01/02/22 07:00 67 16 94 01/02/22 06:50 69 15 95 01/02/22 06:40 71 16 95 01/02/22 06:30 69 15 96 01/02/22 06:20 76 19 95 01/02/22 06:10 74 16 95 01/02/22 06:00 71 17 96 01/02/22 05:50 72 17 94 01/02/22 05:43 70 20 108/58 L 94 01/02/22 05:41 72 18 108/58 L 93 01/02/22 05:40 74 17 94 01/02/22 05:30 71 18 01/02/22 05:20 71 19 01/02/22 05:10 71 18 01/02/22 05:00 71 17 01/02/22 04:50 70 20 01/02/22 04:40 71 18 01/02/22 04:30 75 18 01/02/22 04:20 73 22 01/02/22 04:10 76 24 96 01/02/22 04:05 70 16 116/59 L 95 01/02/22 04:00 69 18 96
--- NOTE | 2022-01-02 16:54 | Electrocardiogram Report ---
Test Reason : Blood Pressure : / mmHG Vent. Rate : 086 BPM Atrial Rate : 086 BPM P-R Int : 152 ms QRS Dur : 100 ms QT Int : 412 ms P-R-T Axes : 048 -42 -09 degrees QTc Int : 493 ms Normal sinus rhythm Left axis deviation Possible Inferior infarct , age undetermined Anterolateral infarct , age undetermined Abnormal ECG Confirmed by Jerald Abdul ([id number]) on 01/02/2022 4:53:54 PM Referred By: REFERRED SELF Confirmed By:Carl Abdul
[2022-01-02] MEDS: PANTOprazole 40 MG TAB PO SCH (17:19)
[2022-01-02] MEDS ORDERED: ATENOLOL 50 MG TABLET PO SCH (21:00)
[2022-01-02] MEDS ORDERED: ASPIRIN 81 MG ECTAB PO SCH (21:00)
[2022-01-02] MEDS ORDERED: ATORVASTATIN 40 MG TAB PO SCH (21:00)
[2022-01-03 06:36] LABS: Hematocrit (blood only) 38.6 % (37-47); Hemoglobin 12.9 g/dL (12.0-16.0); Mean Corpuscular Hemoglobin 31.2 pg (25-34); Mean Corpuscular Hgb Conc 33.4 g/dL (32-36); Mean Corpuscular Volume 93.2 fL (80-100); Mean Platelet Volume 9.7 fL (7.4-10.4); Platelet Count 193 K/uL (130-400); RDW Coefficient of Variation 14.2 % (11.5-14.5); RDW Standard Deviation 48.1 fL (36.4-46.3); Red Blood Count 4.14 M/uL (4.2-5.4); White Blood Count 7.06 K/uL (4.8-10.8)
[2022-01-03 07:01] LABS: BUN Creatinine Ratio 13.9 (10-20); Calcium 8.9 mg/dl (8.5-10.1); Est GFR (African American) 100.4 ml/min; Est GFR (Non-African American) 86.7 ml/min; Magnesium 1.6 mg/dl (1.7-2.4); Potassium 3.4 mmol/L (3.5-5.1)
[2022-01-03] MEDS: ACETAMINOPHEN 325 MG TAB PO PRN (07:29)
[2022-01-03] MEDS: INSULIN ASPART PER UNIT SC SCH ×2 (08:02→12:29)
[2022-01-03] MEDS: PANTOprazole 40 MG TAB PO SCH (08:03)
[2022-01-03] MEDS: INSULIN GLARGINE SOLOSTAR 100 UNITS/ML 3 ML PEN SC SCH (08:03)
[2022-01-03] MEDS: FAMOTIDINE 10 MG TABLET PO SCH (08:03)
[2022-01-03] MEDS ORDERED: POTASSIUM CHLORIDE CRTAB 20 MEQ TABCR PO STA (08:36)
[2022-01-03] MEDS: MAGNESIUM SULFATE / D5W 1 GM/100 ML BAG IV SCH ×2 (09:36→11:50)
[2022-01-03] MEDS: ENOXAPARIN INJ 40 MG/0.4 ML SYR SQ SCH (09:36)
[2022-01-03] MEDS: LOSARTAN POTASSIUM 50 MG TAB PO SCH (09:37)
[2022-01-03] MEDS: MULTIVITAMIN TAB PO SCH (09:37)
[2022-01-03] MEDS ORDERED: ADVANCED PROBIOTIC 1250 MG CAPSULE PO SCH (10:30)
--- NOTE | 2022-01-03 14:44 | Discharge Summary ---
Date of Service January 03, 2022 Admission HPI Per Admitting Provider History obtained from patient and records. 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 Last confinement June 2013 for left-sided chest pain. No inducible ischemia on stress echo. Yesterday, patient noted throat discomfort. Throat felt bruised. No recollection of pharyngeal trauma or intake of unusual food. No fever, no chills. No swallowing issues as per patient. Today, throat discomfort felt like it was going down to her chest without shortness of breath. No prior attacks. Some relief with nitroglycerin administered at the ER. MEDICAL HISTORY: As above. SURGICAL HISTORY: Tubal ligation, carpal tunnel surgery, tonsillectomy, cholecystectomy, upper eyelid revision FAMILY HISTORY: Hypertension, diabetes, heart disease. 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 Admission Exam Per Admitting Provider GENERAL: Comfortable, pleasant, morbidly obese, no respiratory distress SKIN: Normal color, warm HEENT: Bespectacled, [place] palpebral conjunctivae, no ptosis, dry buccal mucosa NECK : Supple, short neck, no tenderness CHEST : CTA, anterior chest wall tenderness HEART : RRR, no obvious murmurs ABDOMEN: Some distention, nontender EXTREMITIES : Minimal LE swelling, no LE tenderness, no other conspicuous deformities noted NEUROLOGIC : Coherent, no facial asymmetry, no other gross focality Principal Diagnosis Likely acute GERD Lung nodule Discharge Exam GENERAL: Alert and oriented x3. NAD, on RA. Morbidly obese HEENT: No pallor, no icterus. Pupils equal, round and reactive to light. Oral mucosa moist. NECK: No JVD, no neck masses. HEART: S1 and S2 heard. Regular rate and rhythm. No murmur, no gallop. RESPIRATORY SYSTEM: Normal AP diameter. No accessory muscle use. No wheezing, no crackles. ABDOMEN: Soft, bowel sounds present, nontender, no distention. CENTRAL NERVOUS SYSTEM: No facial droop. Speech is clear. Obeys simple commands. Moves extremities. EXTREMITIES: No edema, no erythema seen. Chest: reproducible lower chest pain/tenderness Discharge Data Allergies Allergy/AdvReac Type Severity Reaction Status Date / Time Penicillins Allergy RASH Verified 01/01/22 21:49 Consultations 03/23/22 22:10 ED Decision to Admit Stat Ordered Studies 01/01/22 21:05 CT abd pelvis IV con only Urgent CT angio chest PE protocol Urgent 01/01/22 23:52 CT soft tissue neck wo con Urgent Hospital Course (1) Atypical chest pain: 66-year-old lady with PMH of HTN, DM 2 on oral meds, LENIN on CPAP, GERD, HLD, left parotid mass [Warthin's tumor on biopsy], ongoing tobacco abuse [10 cigarettes/day], tonsillectomy, cholecystectomy presented to our ED 01/01 with complaint of continuous and ongoing throat discomfort associated with chest pain since last 2 to 3 days [employer] not associated with SOP/diaphoresis/radiation of chest pain. Of note, she was admitted in June 2013 for left-sided chest pain, no inducible ischemia on a stress echo. She was managed for the following: #. Likely acute GERD #. Reproducible anterior chest tenderness Patient presenting with complaint of throat discomfort associated with chest pain, continuous in nature, no radiation, not associated with diaphoresis or shortness of breath The symptoms started 2 to 3 days [employer], worsened over the next days prior to arrival Family history of cardiac events/stents in heart in father in age 70s, no pers onal history of prior cardiac stents or heart attack per patient. No recent activity of heavy work. Patient does have history of GERD. Troponin trend x3: Negative Admitting EKG: NSR with rate of 86. No acute ST or T changes appreciated. 01/02 echo: EF 55 to 60%, grade 1 diastolic dysfunction, mild TR. Patient reported continuous nature of chest pain which has resolved by today, no chest pain upon walking in the hallway as well. Continue with famotidine for 7 days, continue with PPI once daily, coordinate with PCP for further management and evaluation. If persistent signs and symptoms of GERD, may need outpatient GI evaluation. Patient advised to have small meals at a time, last meal 3 to 4 hours prior to going to bed. Avoid caffeine/chocolate. Prop up head of bed. Patient will likely need outpatient follow-up with GI. #. H/o HTN #. Electrolytes abnormality Patient's blood pressure was low normal while in hospital, chlorthalidone has been discontinued upon discharge Patient's potassium supplement has been revised, added magnesium supplement, her electrolytes level were low in the hospital requiring replenishment. Patient will need to coordinate further evaluation and care/management with her PCP as an outpatient for her hypertension and electrolytes abnormality. Patient to get blood test CMP and magnesium level in a week time upon discharge. #. Lung nodule Admitting chest CTA revealed 3 mm groundglass nodule within the left lower lobe. Patient made aware. Patient is smoking 10 cigarettes a day for a long time. Pt will likely need follow-up in 1 year, possible CT scan. #. Other chronic medical conditions: HTN, HLD, DM2 on oral meds, LENIN on CPAP, left parotid mass, ongoing tobacco abuse Resume/continue with home treatments as and when appropriate. Continue with sliding scale insulin. Follow-up with outpatient [facility] September 2021 as a scheduled. DVT prophylaxis per Lovenox subcu Full code Following instructions were communicated to the patient at the point of discharge: Follow-up with your primary care physician within a week time. Your electrolytes level [potassium and magnesium level] were low while in hospital, you will be discharged on revised electrolyte supplement. Get your blood work CMP and magnesium level done in a week time and have the results forw arded to your PCP. Coordinate with your PCP for further evaluation and management of your electrolytes. Since your blood pressure were on the lower side while in hospital, one of your diuretic by the name of chlorthalidone has been discontinued upon discharge. You will be discharged on Protonix once daily for your GERD. You can continue with famotidine for 7 days and stop. If persistent symptoms of GERD, you will likely need evaluation with GI doctor. Coordinate with your outpatient PCP for further evaluation and management. Maintain lifestyle modification to avoid signs and symptoms of GERD: Small volume of meals at a time, last meal 4 hours prior to bed, elevate the head of bed, avoid caffeine/chocolate/spicy foods. Advise against smoking tobacco in future, for your lung nodule in left lower lobe follow-up with your PCP to coordinate care as an outpatient. Maintain diabetic and heart healthy diet. If any concern/worsening of chest pain, contact your PCP or emergency immediatel y. Take medications as prescribed. Total Time Total Time Spent Total Time Spent (In Minutes): 35 Discharge Plan Discharge Items Patient Disposition: Home - Self-Care Reason For Visit: CHEST PAIN, HYPOK, HYPOMAG Discharge Diagnosis: Likely acute GERD Lung nodule Activity: Resume your previous activity Non-emergency contact: Primary Care Provider Call non-emergency contact if: you have any medication questions, your symptoms worsen and your rectal temperature is above 100.4 Follow-up/Referrals: Pippa Reyna DO [Primary Care Provider] - (Date & Time 01/08/2022 3:00 PM Provider Pippa Reyna DO Department [facility] ) Diet: Carb Consistent or DM2 and Heart Healthy Diet Comment: Small volume of meals at a time, last meal 4 hours prior to bed. Addtl Attending Provider Instructions: Follow-up with your primary care physician within a week time. Your electrolytes level [potassium and magnesium level] were low while in hospital, you will be discharged on revised electrolyte supplement. Get your blood work CMP and magnesium level done in a week time and have the results forwarded to your PCP. Coordinate with your PCP for further evaluation and management of your electrolytes. Since your blood pressure were on the lower side while in hospital, one of your diuretic by the name of chlorthalidone has been discontinued upon discharge. You will be discharged on Protonix once daily for your GERD. You can continue with famotidine for 7 days and stop. If persistent symptoms of GERD, you will likely need evaluation with GI doctor. Coordinate with your outpatient PCP for further evaluation and management. Maintain lifestyle modification to avoid signs and symptoms of GERD: Small volume of meals at a time, last meal 4 hours prior to bed, elevate the head of bed, avoid caffeine/chocolate/spicy foods. Advise against smoking tobacco in future, for your lung nodule in left lower lobe follow-up with your PCP to coordinate care as an outpatient. Maintain diabetic and heart healthy diet. If any concern/worsening of chest pain, contact your PCP or emergency immediately. Take medications as prescribed. Pending Studies at Discharge: No Stand-Alone Forms: [employer], Smoking Cessation Medications and DC Order Prescriptions: New cefixime [Suprax] 400 mg Capsule 400 mg PO DAILY 7 Days Qty: 7 RF: 0 acetaminophen 325 mg Tablet 650 mg PO Q6H PRN (Reason: pain) Qty: 30 RF: 0 famotidine [Acid Head Still Operator (famotidine)] 10 mg Tablet 10 mg PO BID 7 Days Qty: 14 RF: 0 Advanced Probiotic 625 mg (10 billion cell) Capsule 2 cap PO DAILY 7 Days Qty: 14 RF: 0 pantoprazole 40 mg Tablet,Delayed Release (Dr/Ec) 40 mg PO QAM Qty: 30 RF: 0 magnesium oxide 400 mg magnesium capsule 400 mg PO BID Qty: 60 RF: 0 Continued multivitamin Tablet 1 tab PO DAILY RF: 0 atorvastatin 40 mg tablet 40 mg PO QPM RF: 0 atenolol 100 mg tablet 100 mg PO QPM RF: 0 aspirin [Aspir-Low] 81 mg Tablet,Delayed Release (Dr/Ec) 81 mg PO PM RF: 0 meclizine 25 mg Tablet 25 mg PO TID PRN (Reason: dizzy) RF: 0 furosemide 20 mg tablet 40 mg PO DAILY RF: 0 losartan 100 mg tablet 100 mg PO DAILY RF: 0 metformin 500 mg tablet extended release 24 hr 2,000 mg PO QPM RF: 0 coenzyme Q10 [Co Q-10] 100 mg Capsule 100 mg PO DAILY RF: 0 cholecalciferol (vitamin D3) [Vitamin D3] 25 mcg (1,000 unit) Tablet 25 mcg PO DAILY RF: 0 [id number] [krill oil] 1,145-285-39-80 mg Capsule 1 cap PO DAILY RF: 0 Changed potassium chloride 10 mEq capsule, extended release 20 meq PO BID Qty: 120 RF: 0 Discontinued chlorthalidone 50 mg tablet 50 mg PO QPM RF: 0 Discharge Orders: Discharge Order (Routine); Ordered 01/03/22 Ordered By: Diane Carrera/Other Patient Handouts: Managing Type 2 Diabetes, Diabetes- Measuring Glucose at Home Admission Data Admit Date/Time: 01/01/22 23:56 Attending Provider: Diane Bejarano Admit Provider: Rito Bryant Primary Care Provider: Pippa Reyna Other Providers: Rito Bryant
== END 2022-01-03 15:59 | disposition home or self-care (01) | DRG 392 ==
LOC: ED 19:56 → SUATTDRO 23:56 → EDINP 23:56 → 2S 01-02 16:50
DX: R07.89 Other chest pain; Z79.82 Long term (current) use of aspirin; R91.1 Solitary pulmonary nodule; F17.210 Nicotine dependence, cigarettes, uncomplicated; Z79.84 Long term (current) use of oral hypoglycemic drugs; E11.9 Type 2 diabetes mellitus without complications; I24.9 Acute ischemic heart disease, unspecified; K21.9 Gastro-esophageal reflux disease without esophagitis; E87.6 Hypokalemia; E83.42 Hypomagnesemia; Z88.0 Allergy status to penicillin; Z83.3 Family history of diabetes mellitus; I10 Essential (primary) hypertension; E78.5 Hyperlipidemia, unspecified; Z82.49 Family history of ischemic heart disease and other diseases of the circulatory system

== ENCOUNTER 2023-05-07 20:41 | Inpatient (IN) ==
[2023-05-07] MEDS ORDERED: METOCLOPRAMIDE HCL INJ 5 MG/ML 2 ML VIAL IV STA (21:45)
[2023-05-07] MEDS ORDERED: SODIUM CHLORIDE 0.9% 1000ML 500 ML IV ONE (21:45)
[2023-05-07] MEDS ORDERED: diphenhydrAMINE 50 MG/ML VIAL IV STA (21:45)
[2023-05-07 22:04] LABS: Basophils # (auto) 0.05 K/uL (0-0.2); Basophils % (auto) 0.5 %; Eosinophils # (auto) 0.58 K/uL (0-0.50); Eosinophils % (auto) 5.2 %; Hematocrit (blood only) 39.9 % (37.0-47.0); Hemoglobin 13.7 g/dl (12.0-16.0); Immature Granulocytes # (auto) 0.04 K/uL (0.01-0.20); Immature Granulocytes % (auto) 0.4 %; Lymphocytes # (auto) 3.19 K/uL (1.2-3.4); Lymphocytes % (auto) 28.9 %; Mean Corpuscular Hemoglobin 30.8 pg (25.0-34.0); Mean Corpuscular Hgb Conc 34.3 g/dL (32.0-36.0); Mean Corpuscular Volume 89.7 fL (80.0-100.0); Mean Platelet Volume 9.6 fL (9.4-12.4); Monocytes # (auto) 0.71 K/uL (0.11-0.59); Monocytes % (auto) 6.4 %; Neutrophils # (auto) 6.48 K/uL (1.40-6.50); Neutrophils % (auto) 58.6 %; Platelet Count 227 K/uL (130-400); RDW Coefficient of Variation 13.8 % (11.5-14.5); Red Blood Count 4.45 M/uL (4.20-5.40); White Blood Count 11.05 K/ul (4.8-10.8)
[2023-05-07 22:18] LABS: Albumin Globulin Ratio 1.6 (0.9-2); Albumin Level 4.4 gm/dl (3.4-5.0); BUN Creatinine Ratio 17.1 (10-20); Bilirubin,Total 0.3 mg/dl (0.2-1.0); Calcium 9.7 mg/dl (8.6-10.3); Creatinine Clr Calc Pharmacy 40.4 ml/min; Est GFR (African American) 42.1 ml/min; Est GFR (Non-African American) 36.3 ml/min; Globulin 2.8 gm/dl (2.5-4.0); Magnesium 1.7 mg/dl (1.7-2.4); Potassium 3.1 mmol/L (3.5-5.1); Total Protein 7.2 gm/dl (6.0-8.3)
[2023-05-07 22:24] LABS: Troponin I High Sensitivity 5.9 pg/ml (0-14)
[2023-05-07 23:00] LABS: Partial Thromboplastin Ratio 0.9; Partial Thromboplastin Time 25.8 Seconds (21.0-31.0); Prothrombin Time 10.8 Seconds (9.0-12.0)
--- NOTE | 2023-05-07 23:09 | Emergency Department Note ---
History of Present Illness General Chief complaint: Hypotension Stated complaint: HYPOTENSION,DIZZY,VISUAL DISTURBANCE,NAUSEA Time Seen by Provider: 05/07/23 21:45 History of Present Illness This 68-year-old female presents to the ER complaining of lightheadedness dizziness and unsteady gait for the past day. Patient denies chest pain, dyspnea, numbness, tingling, localized weakness, loss of balance. She does smoke. No history of stroke or heart attack. Home Medications Medication Instructions Recorded Confirmed Type aspirin 81 mg tablet,delayed 81 mg PO PM 01/01/22 05/08/23 History release atorvastatin 40 mg tablet 40 mg PO QPM 01/01/22 05/08/23 History cholecalciferol (vitamin D3) 25 25 mcg PO DAILY 01/01/22 05/08/23 History mcg (1,000 unit) tablet (Vitamin D3) coenzyme Q10 100 mg capsule (Co 100 mg PO QAM 01/01/22 05/08/23 History Q-10) losartan 100 mg tablet 100 mg PO QAM 01/01/22 05/08/23 History chlorthalidone 25 mg tablet 25 mg PO QAM 05/08/23 05/08/23 History diclofenac sodium 75 mg See Rx Instructions .Route .COMPLEX 05/08/23 05/08/23 History tablet,delayed release empagliflozin 25 mg tablet 25 mg PO QAM 05/08/23 05/08/23 History famotidine 20 mg tablet 20 mg PO AMHS 05/08/23 05/08/23 History krill 1,000 mg-omega-3 170 mg-dha 1 cap PO QAM 05/08/23 05/08/23 History 50 mg-epa 80 [id number] capsule (krill oil) multivitamin with minerals 1 tab PO DAILY 05/08/23 05/08/23 History (Multiple Vitamin-Minerals tablet) potassium chloride 10 mEq 10 meq PO BID 05/08/23 05/08/23 History capsule,extended release Allergies Allergy/AdvReac Type Severity Reaction Status Date / Time Penicillins Allergy RASH Verified 05/08/23 02:29 Past Med/Surg History Social History Smoking Status: Current every day smoker Tobacco Type: Cigarettes Hx Alcohol Use: No Hx Substance Use: No Preferred Language: Maltese Communication Ability: Effective 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 Beliefs That Will Affect Care: None Current Living Situation: Spouse Current Living Situation Comment: patient is primary caregiver of her who is disabled and blind Feels Safe at Home: Yes Assistive Devices: CPAP Review of Systems A total of 10 systems reviewed and were otherwise negative Physical Exam Vital Signs Vital Signs - 24 hr 05/07/23 20:50 05/08/23 00:38 05/08/23 00:43 Temperature 36.1 C L Temperature Source Temporal Artery Scan Pulse Rate - Lying 64 Pulse Rate - Sitting 69 Pulse Rate - Standing 74 Pulse Rate 69 Respiratory Rate 18 Respiratory Effort / Characteristics Non-Labored Respiratory Depth Normal Blood Pressure - Lying 130/72 Blood Pressure - Sitting 143/74 H Blood Pressure- Standing 124/70 Blood Pressure 121/70 Blood Pressure Mean 87 Pulse Oximetry 95 Oxygen Delivery Method Room Air Room Air Sepsis Recent Fever Within 48 Hours No Sepsis New/Unexplained Change in Mental Status No Sepsis Action Taken by Nursing No Action Required VITALS: Vitals are noted on the nurse's note and reviewed by myself. Vital signs stable. GENERAL: pleasant patient, in no acute distress, nondiaphoretic, well-developed well-nourished. SKIN: The skin was without rashes, erythema, edema, or bruising. There is no tenting of the skin. Capillary reflex less than 2 seconds. HEAD: Normocephalic atraumatic. EARS: External auditory canals clear, EYES: Pupils equal round and reactive to light and accommodation. Conjunctivae without injection, sclerae without icterus. Extraocular movements intact. NOSE: Patent, turbinates without inflammation or discharge. MOUTH: Mucous membranes moist. Pharynx without erythema or exudate. Uvula midline. Airway patent. Tongue does not deviate. NECK: Supple without nuchal rigidity. No lymphadenopathy. No thyromegaly. Cervical spine is nontender. No JVD. HEART: Regular rate and rhythm LUNGS: Clear to auscultation bilaterally without wheezes, rales or rhonchi. No retractions or accessory muscle use. ABDOMEN: Positive bowel sounds x 4. Normal tympanic percussion. Soft, nontend er, without masses or organomegaly. Hinton sign negative. No guarding or rebound tenderness. No CVA tenderness MUSCULOSKELETAL: No muscle atrophy, erythema, or edema noted. NEURO: Patient was alert and oriented to person place and time. Normal sensation to light and sharp touch. No focal neurological deficits. Cranial nerves II through XII grossly intact. No pronator r drift. Cerebellar exam intact Course Administered Medications Discontinued Medications Diphenhydramine HCl (Diphenhydramine 50 Mg/Ml Vial) 25 mg IV NOW STA Stop: 05/07/23 21:46 Last Admin: 05/08/23 01:59 Dose: Not Given Documented By: DONTRELL Diphenhydramine HCl (Diphenhydramine 50 Mg/Ml Vial) Confirm Administered Dose 50 mg .ROUTE .STK-MED ONE Stop: 05/08/23 00:51 Last Admin: 05/08/23 00:59 Dose: Not Given Documented By: DONTRELL Sodium Chloride (Nss 1000ml) 500 mls @ 999 mls/hr IV .Q31M ONE Stop: 05/07/23 22:15 Last Infusion: 05/08/23 01:59 Dose: 0 mls/hr Documented By: Admin: 05/08/23 00:56 Dose: 999 mls/hr Documented By: DONTRELL Potassium Chloride (K Rob / Wtr) 10 meq in 100 mls @ 100 mls/hr IV ONE ONE Stop: 05/08/23 00:15 Last Infusion: 05/08/23 01:59 Dose: 0 mls/hr Documented By: Admin: 05/08/23 00:55 Dose: 100 mls/hr Documented By: DONTRELL Ioversol (Ioversol 350 Mg 125ml Prefilled Syringe) 115 ml IV ONCE ONE Stop: 05/08/23 00:13 Last Admin: 05/08/23 00:19 Dose: 115 ml Documented By: KHADRA Metoclopramide HCl (Metoclopramide Hcl Inj 5 Mg/Ml 2 Ml Vial) 10 mg IV NOW STA Stop: 05/07/23 21:46 Last Admin: 05/08/23 01:59 Dose: Not Given Documented By: DONTRELL Metoclopramide HCl (Metoclopramide Hcl Inj 5 Mg/Ml 2 Ml Vial) Confirm Administered Dose 10 mg .ROUTE .STK-MED ONE Stop: 05/08/23 00:51 Last Admin: 05/08/23 00:59 Dose: Not Given Documented By: DONTRELL Potassium Chloride (Potassium Chloride 10 Meq Tabcr) 40 meq PO NOW STA Stop: 05/07/23 23:17 Last Admin: 05/08/23 00:54 Dose: 40 meq Documented By: DONTRELL Medical Decision Making Medical Records Attestation: I reviewed the patient's medical records. Home Medications Current Medication List: was personally reviewed by me Laboratory Data Attestation: I reviewed the patient's lab results. 05/07/23 20:53 05/07/23 20:53 Lab Results 05/07/23 05/07/23 05/07/23 Range/Units 20:53 20:53 21:40 WBC 11.05 H (4.8-10.8) K/ul RBC 4.45 (4.20-5.40) M/uL Hgb 13.7 (12.0-16.0) g/dl Hct 39.9 (37.0-47.0) % MCV 89.7 (80.0-100.0) fL MCH 30.8 (25.0-34.0) pg MCHC 34.3 (32.0-36.0) g/dL RDW Std Deviation 45.0 (36.4-46.3) fL RDW Coeff of Janet 13.8 (11.5-14.5) % Plt Count 227 (130-400) K/uL MPV 9.6 (9.4-12.4) fL Immature Gran % (Auto) 0.4 % Neut % (Auto) 58.6 % Lymph % (Auto) 28.9 % [place] % (Auto) 6.4 % Eos % (Auto) 5.2 % Baso % (Auto) 0.5 % Neut # (Auto) 6.48 (1.40-6.50) K/uL Lymph # (Auto) 3.19 (1.2-3.4) K/uL [place] # (Auto) 0.71 H (0.11-0.59) K/uL Eos # (Auto) 0.58 H (0-0.50) K/uL Baso # (Auto) 0.05 (0-0.2) K/uL Immature Gran # (Auto) 0.04 (0.01-0.20) K/uL PT 10.8 (9.0-12.0) Seconds INR 1.0 (0.9-1.1) APTT 25.8 (21.0-31.0) Seconds PTT Ratio 0.9 Sodium 141 (136-145) mmol/L Potassium 3.1 L (3.5-5.1) mmol/L Chloride 100 (98-107) mmol/L Carbon Dioxide 32 (21-32) mmol/L Anion Gap 9 (3-11) BUN 25 H (6-23) mg/dl Creatinine 1.46 H (0.6-1.2) mg/dl Est Cr Clr Drug Dosing 40.4 ml/min Est GFR ( Amer) 42.1 ml/min Est GFR (Non-Af Amer) 36.3 ml/min BUN/Creatinine Ratio 17.1 (10-20) Glucose 123 H (70-99(Fasting)) mg/dl Calcium 9.7 (8.6-10.3) mg/dl Magnesium 1.7 (1.7-2.4) mg/dl Total Bilirubin 0.3 (0.2-1.0) mg/dl AST 19 (13-39) U/L ALT 17 (7-52) U/L Alkaline Phosphatase 72 (34-104) U/L Troponin I High Sens 5.9 (0-14) pg/ml Total Protein 7.2 (6.0-8.3) gm/dl Albumin 4.4 (3.4-5.0) gm/dl Globulin 2.8 (2.5-4.0) gm/dl Albumin/Globulin Ratio 1.6 (0.9-2) 05/08/23 Range/Units 00:00 WBC (4.8-10.8) K/ul RBC (4.20-5.40) M/uL Hgb (12.0-16.0) g/dl Hct (37.0-47.0) % MCV (80.0-100.0) fL MCH (25.0-34.0) pg MCHC (32.0-36.0) g/dL RDW Std Deviation (36.4-46.3) fL RDW Coeff of Janet (11.5-14.5) % Plt Count (130-400) K/uL MPV (9.4-12.4) fL Immature Gran % (Auto) % Neut % (Auto) % Lymph % (Auto) % [place] % (Auto) % Eos % (Auto) % Baso % (Auto) % Neut # (Auto) (1.40-6.50) K/uL Lymph # (Auto) (1.2-3.4) K/uL [place] # (Auto) (0.11-0.59) K/uL Eos # (Auto) (0-0.50) K/uL Baso # (Auto) (0-0.2) K/uL Immature Gran # (Auto) (0.01-0.20) K/uL PT (9.0-12.0) Seconds INR (0.9-1.1) APTT (21.0-31.0) Seconds PTT Ratio Sodium (136-145) mmol/L Potassium (3.5-5.1) mmol/L Chloride (98-107) mmol/L Carbon Dioxide (21-32) mmol/L Anion Gap (3-11) BUN (6-23) mg/dl Creatinine (0.6-1.2) mg/dl Est Cr Clr Drug Dosing ml/min Est GFR ( Amer) ml/min Est GFR (Non-Af Amer) ml/min BUN/Creatinine Ratio (10-20) Glucose (70-99(Fasting)) mg/dl Calcium (8.6-10.3) mg/dl Magnesium (1.7-2.4) mg/dl Total Bilirubin (0.2-1.0) mg/dl AST (13-39) U/L ALT (7-52) U/L Alkaline Phosphatase (34-104) U/L Troponin I High Sens 6.5 (0-14) pg/ml Total Protein (6.0-8.3) gm/dl Albumin (3.4-5.0) gm/dl Globulin (2.5-4.0) gm/dl Albumin/Globulin Ratio (0.9-2) Imaging Data Attestation: I personally reviewed and interpreted this imaging study as follows: Radiologist's Impression: Head CT 05/07/23 21:45 Exam(s): CT HEAD Without Contrast EXAM: CT Head Without Intravenous Contrast CLINICAL HISTORY: Reason for exam: neuro deficit, acute stroke suspected. TECHNIQUE: Axial computed tomography images of the head/brain without intravenous contrast. CTDI is 13.89 mGy and DLP is 521.34 mGy-cm. Automated exposure control was utilized for the study. A dose lowering technique was utilized adhering to the principles of ALARA. COMPARISON: None. FINDINGS: Brain: Mild generalized brain atrophy. 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 No hemorrhage. Ventricles: Unremarkable. No ventriculomegaly. Bones/joints: Unremarkable. No acute fracture. Soft tissues: Unremarkable. Sinuses: Scattered focal areas of mucosal thickening throughout the bilateral adenoids, most compatible with sequela of chronic or prior sinusitis. Mastoid air cells: Unremarkable as visualized. No mastoid effusion. IMPRESSION: 1. Chronic changes as described. No acute intracranial hemorrhage or space-occupying lesion. 2. Mild ethmoid sinus disease as described. Electronically signed by: Sushila Yao MD 05/08/23 01:56 AM Head CTA 05/07/23 21:45 Exam(s): CTA HEAD With Contrast IV Amt: 115 ml optiray 350 EXAM: CT Angiography Head With Intravenous Contrast CLINICAL HISTORY: Reason for exam: neuro deficit, acute stroke suspected. TECHNIQUE: Axial computed tomographic angiography images of the head with intravenous contrast. CTDI is 36.9 mGy and DLP is 702.46 mGy-cm. Automated exposure control was utilized for the study. A dose lowering technique was utilized adhering to the principles of ALARA. MIP reconstructed images were created and reviewed. CONTRAST: Patient received 115 ml optiray 350 of IV contrast COMPARISON: None. FINDINGS: Right internal carotid artery: Mild calcified atherosclerotic disease involving the cavernous portion of the right internal carotid artery with less than 50% stenosis. No aneurysm. Right anterior cerebral artery: Unremarkable. No occlusion or significant stenosis. No aneurysm. Right middle cerebral artery: Unremarkable. No occlusion or significant stenosis. No aneurysm. Right posterior cerebral artery: Unremarkable. No occlusion or significant stenosis. No aneurysm. Right vertebral artery: Unremarkable as visualized. Left internal carotid artery: Mild calcified plaque involving the cavernous portion of the left internal carotid artery with less than 50% stenosis. No aneurysm. Left anterior cerebral artery: Unremarkable. No occlusion or significant stenosis. No aneurysm. Left middle cerebral artery: Unremarkable. No occlusion or significant stenosis. No aneurysm. Left posterior cerebral artery: Unremarkable. No occlusion or significant stenosis. No aneurysm. Left vertebral artery: Unremarkable as visualized. Basilar artery: Unremarkable. No occlusion or significant stenosis. No aneurysm. IMPRESSION: Atherosclerotic disease predominantly in the cavernous portion of bilateral internal carotid arteries, otherwise no significant stenosis, occlusion or aneurysm involving the [place]. Electronically signed by: Sushila Yao MD 05/08/23 02:01 AM Neck CTA 05/07/23 21:45 Exam(s): CTA NECK With Contrast IV Amt: 115 ml optiray 350 EXAM: CT Angiography Neck With Intravenous Contrast CLINICAL HISTORY: Reason for exam: neuro deficit, acute stroke suspected. TECHNIQUE: Routine carotid CT angiography protocol was performed with intravenous contrast. NASCET criteria using the distal ICAs for comparison were used for evaluation of stenoses. CTDI is 36.9 mGy and DLP is 702.46 mGy-cm. Automated exposure control was utilized for the study. A dose lowering technique was utilized adhering to the principles of ALARA. MIP reconstructed images were created and reviewed. CONTRAST: Patient received 115 ml optiray 350 of IV contrast COMPARISON: None. FINDINGS: VASCULATURE: Right common carotid artery: Unremarkable. No occlusion or significant stenosis. No dissection. Right internal carotid artery: Mild to moderate calcified plaque at the right carotid bulb. Mild to moderate calcified plaque at the origin and proximal right internal carotid artery with less than 50% diameter narrowing. Right external carotid artery: Unremarkable. No occlusion. Right vertebral artery: Unremarkable. No occlusion or significant stenosis. No dissection. Left common carotid artery: Unremarkable. No occlusion or significant stenosis. No dissection. Left internal carotid artery: Minimal calcified plaque at the origin of the left internal carotid artery with no stenosis. No dissection. Left external carotid artery: Unremarkable. No occlusion. Left vertebral artery: Dominant left-sided vertebral artery. No occlusion or significant stenosis. No dissection. Aorta: Atherosclerotic disease throughout the aorta with no dissection or aneurysm. NECK: Bones/joints: Unremarkable. Soft tissues: Unremarkable. Lung apices: Clear. CAROTID STENOSIS REFERENCE USING NASCET CRITERIA: % ICA stenosis = (1 - narrowest ICA diameter/diameter of distal cervical ICA) x 100. Mild - <50% stenosis. Moderate - 50-69% stenosis. Severe - 70-94% stenosis. Near occlusion - 95-99% stenosis. Occluded - 100% stenosis. IMPRESSION: Mild atherosclerotic disease predominantly in the carotid bulb region, right more than left otherwise no significant stenosis, occlusion or aneurysm involving the bilateral carotid and vertebral arteries. Electronically signed by: Sushila Yao MD 05/08/23 01:59 AM [facility] Narrative Prior records/ancillary studies reviewed and summarized above. Nursing notes reviewed. Additional history obtained from family The patient's history was concerning for the dizziness and balance problems. Differential diagnosis: Etiologies such as metabolic, infection, hypo/hyperglycemia, electrolyte abnormalities, cardiac sources, intracerebral event, toxicologic, neurologic, as well as others were entertained. Physical examination: As above. ER treatment provided: IV Lock An order was placed for continuous cardiac monitoring. The monitor shows a rate of 60-100 with a sign rhythm per my interpretation. IV fluids Reglan and Benadryl were ordered Patient was given potassium On reassessment the patient felt better. Diagnostics interpretation by me: ECG: Ordered for lightheadedness EKG: Normal sinus, left axis, T wave inversions in the anterior lateral leads and inferior leads, rate of 63. Impression normal sinus rhythm left axis with T wave inversions independently interpreted by myself The labs Independently Interpreted by myself revealed low potassium. Normal magnesium. Mild hyperglycemia. Negative troponin Imaging studies: CT of the head and neck were negative for bleed per my independent interpretation reports were reviewed as above.; Consultation: A consultation was placed with the hospitalist. The case was discussed and di agnostics were reviewed. The patient was evaluated in the ER for further treatment. Exam and history seem consistent with dizziness with difficulty ambulating. Patient had no obvious signs of stroke. She still felt pretty unsteady with her gait after being medicated as above. Labs and diagnostics were independently interpreted by myself. Radiology read the CAT scan. Potassium was replaced as above. Medicine was consulted and the case was discussed. She will be admitted to the medical service for further evaluation and work-up. By the evaluation outlined above emergent etiologies such as cardiac sources, intracerebral event, toxologic, abnormalities blood glucose, metabolic, as well as others were deemed relatively unlikely. The pt informed about the findings as listed above. All questions were answered and pleased with the treatment The chart was completed utilizing [employer] Speech voice recognition software. Grammatical errors, random word insertions, pronoun errors, and incomplete sentences are an occassional consequence of this system due to software limita tions, ambient noise, and hardware issues. Any formal questions or concerns about the content, text, or information contained within the body of this dictation should be directly addressed to the physician assistant manager/embalmer for clarification. Impression & Plan Dizziness, Hypokalemia Discharge Plan Visit Data Chief Complaint: Hypotension Stated Complaint: HYPOTENSION,DIZZY,VISUAL DISTURBANCE,NAUSEA ED Provider: Wilda Liu ED Midlevel Provider: Cailin Luque Discharge Problem: Dizziness, Hypokalemia Patient Disposition: Being Evaluated by Hospitalist Condition: Good Forms Stand Alone Forms: My [facility] Prescriptions Prescriptions: No Action atorvastatin 40 mg tablet 40 mg PO QPM aspirin 81 mg Tablet,Delayed Release (Dr/Ec) 81 mg PO PM losartan 100 mg tablet 100 mg PO QAM coenzyme Q10 [Co Q-10] 100 mg Capsule 100 mg PO QAM cholecalciferol (vitamin D3) [Vitamin D3] 25 mcg (1,000 unit) Tablet 25 mcg PO DAILY potassium chloride 10 mEq capsule, extended release 10 meq PO BID krill oil [id number] mg Capsule 1 cap PO QAM chlorthalidone 25 mg Tablet 25 mg PO QAM empagliflozin 25 mg Tablet 25 mg PO QAM famotidine 20 mg Tablet 20 mg PO AMHS Multiple Vitamin-Minerals Tablet 1 tab PO DAILY diclofenac sodium 75 mg Tablet,Delayed Release (Dr/Ec) See Rx Instructions .ROUTE .COMPLEX Rx Instructions: take 1 tablet by mouth twice a day in the morning and before bedtime initiate with in 24-48 hours of gout flare onset and discontinue 2 to 3 days after resolution Referrals Referrals: Pippa Reyna DO [Primary Care Provider] -
[2023-05-07] MEDS ORDERED: POTASSIUM CHLORIDE 10 MEQ TABCR PO STA (23:16)
[2023-05-07] MEDS ORDERED: POTASSIUM CHLORIDE / WTR 10 MEQ/100 ML PLCT IV ONE (23:16)
[2023-05-08] MEDS ORDERED: IOVERSOL 350 MG 125mL Prefilled Syringe IV ONE (00:12)
[2023-05-08] MEDS ORDERED: diphenhydrAMINE 50 MG/ML VIAL ONE (00:50)
[2023-05-08] MEDS ORDERED: METOCLOPRAMIDE HCL INJ 5 MG/ML 2 ML VIAL ONE (00:50)
--- NOTE | 2023-05-08 01:57 | CT Scan Report ---
Exam(s): CT HEAD Without Contrast EXAM: CT Head Without Intravenous Contrast CLINICAL HISTORY: Reason for exam: neuro deficit, acute stroke suspected. TECHNIQUE: Axial computed tomography images of the head/brain without intravenous contrast. CTDI is 13.89 mGy and DLP is 521.34 mGy-cm. Automated exposure control was utilized for the study. A dose lowering technique was utilized adhering to the principles of ALARA. COMPARISON: None. FINDINGS: Brain: Mild generalized brain atrophy. 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 No hemorrhage. Ventricles: Unremarkable. No ventriculomegaly. Bones/joints: Unremarkable. No acute fracture. Soft tissues: Unremarkable. Sinuses: Scattered focal areas of mucosal thickening throughout the bilateral adenoids, most compatible with sequela of chronic or prior sinusitis. Mastoid air cells: Unremarkable as visualized. No mastoid effusion. IMPRESSION: 1. Chronic changes as described. No acute intracranial hemorrhage or space-occupying lesion. 2. Mild ethmoid sinus disease as described. Electronically signed by: Sushila Yao MD 05/08/23 01:56 AM
--- NOTE | 2023-05-08 02:00 | CT Scan Report ---
Exam(s): CTA NECK With Contrast IV Amt: 115 ml optiray 350 EXAM: CT Angiography Neck With Intravenous Contrast CLINICAL HISTORY: Reason for exam: neuro deficit, acute stroke suspected. TECHNIQUE: Routine carotid CT angiography protocol was performed with intravenous contrast. NASCET criteria using the distal ICAs for comparison were used for evaluation of stenoses. CTDI is 36.9 mGy and DLP is 702.46 mGy-cm. Automated exposure control was utilized for the study. A dose lowering technique was utilized adhering to the principles of ALARA. MIP reconstructed images were created and reviewed. CONTRAST: Patient received 115 ml optiray 350 of IV contrast COMPARISON: None. FINDINGS: VASCULATURE: Right common carotid artery: Unremarkable. No occlusion or significant stenosis. No dissection. Right internal carotid artery: Mild to moderate calcified plaque at the right carotid bulb. Mild to moderate calcified plaque at the origin and proximal right internal carotid artery with less than 50% diameter narrowing. Right external carotid artery: Unremarkable. No occlusion. Right vertebral artery: Unremarkable. No occlusion or significant stenosis. No dissection. Left common carotid artery: Unremarkable. No occlusion or significant stenosis. No dissection. Left internal carotid artery: Minimal calcified plaque at the origin of the left internal carotid artery with no stenosis. No dissection. Left external carotid artery: Unremarkable. No occlusion. Left vertebral artery: Dominant left-sided vertebral artery. No occlusion or significant stenosis. No dissection. Aorta: Atherosclerotic disease throughout the aorta with no dissection or aneurysm. NECK: Bones/joints: Unremarkable. Soft tissues: Unremarkable. Lung apices: Clear. CAROTID STENOSIS REFERENCE USING NASCET CRITERIA: % ICA stenosis = (1 - narrowest ICA diameter/diameter of distal cervical ICA) x 100. Mild - <50% stenosis. Moderate - 50-69% stenosis. Severe - 70-94% stenosis. Near occlusion - 95-99% stenosis. Occluded - 100% stenosis. IMPRESSION: Mild atherosclerotic disease predominantly in the carotid bulb region, right more than left otherwise no significant stenosis, occlusion or aneurysm involving the bilateral carotid and vertebral arteries. Electronically signed by: Sushila Yao MD 05/08/23 01:59 AM
--- NOTE | 2023-05-08 02:02 | CT Scan Report ---
Exam(s): CTA HEAD With Contrast IV Amt: 115 ml optiray 350 EXAM: CT Angiography Head With Intravenous Contrast CLINICAL HISTORY: Reason for exam: neuro deficit, acute stroke suspected. TECHNIQUE: Axial computed tomographic angiography images of the head with intravenous contrast. CTDI is 36.9 mGy and DLP is 702.46 mGy-cm. Automated exposure control was utilized for the study. A dose lowering technique was utilized adhering to the principles of ALARA. MIP reconstructed images were created and reviewed. CONTRAST: Patient received 115 ml optiray 350 of IV contrast COMPARISON: None. FINDINGS: Right internal carotid artery: Mild calcified atherosclerotic disease involving the cavernous portion of the right internal carotid artery with less than 50% stenosis. No aneurysm. Right anterior cerebral artery: Unremarkable. No occlusion or significant stenosis. No aneurysm. Right middle cerebral artery: Unremarkable. No occlusion or significant stenosis. No aneurysm. Right posterior cerebral artery: Unremarkable. No occlusion or significant stenosis. No aneurysm. Right vertebral artery: Unremarkable as visualized. Left internal carotid artery: Mild calcified plaque involving the cavernous portion of the left internal carotid artery with less than 50% stenosis. No aneurysm. Left anterior cerebral artery: Unremarkable. No occlusion or significant stenosis. No aneurysm. Left middle cerebral artery: Unremarkable. No occlusion or significant stenosis. No aneurysm. Left posterior cerebral artery: Unremarkable. No occlusion or significant stenosis. No aneurysm. Left vertebral artery: Unremarkable as visualized. Basilar artery: Unremarkable. No occlusion or significant stenosis. No aneurysm. IMPRESSION: Atherosclerotic disease predominantly in the cavernous portion of bilateral internal carotid arteries, otherwise no significant stenosis, occlusion or aneurysm involving the [place]. Electronically signed by: Sushila Yao MD 05/08/23 02:01 AM
--- NOTE | 2023-05-08 03:42 | History & Physical Report ---
Date of Service May 08, 2023 Assessment & Plan (1) Dizziness: Plan: 68-year-old female with past medical significant for type 2 diabetes, hyperlipidemia, obstructive sleep apnea, hypertension, GERD, obesity presents with dizziness and imbalance going on since morning. Dizziness Imbalance Blood pressure is low at home Blood pressure is okay at here and feeling better but still not back to baseline CT head and CTA head and neck unremarkable except for arthrosclerotic disease in the carotids but no significant stenosis was seen We will do full stroke work-up with MRI scan, echo, neurochecks, speech and PT OT evaluation. If any findings on MRI scan or if symptoms do not improve will consult neurology. Patient is already on aspirin and statin. As patient mentions hypotension could be cause of her symptoms. Will hold chlorthalidone and potassium supplements for now and monitor the blood pressure. Hypertension On chlorthalidone and losartan As patient was having hypotension at home we will hold chlorthalidone for now Made need to cut back on chlorthalidone dose or change to hydrochlorothiazide Hypokalemia Potassium 3.1 Mostly from chlorthalidone Replaced in the ER We will follow the labs Prolonged QTc Potassium replaced Follow repeat EKG in a.m. Avoid QT prolonging drugs Diabetes holding Jardiance Sliding scale We will follow blood sugars and HbA1c levels Obstructive sleep apnea CPAP nightly Hyperlipidemia on statin We will follow lipid profile Obesity needs counseling DVT prophylaxis SCDs Full code History of Present Illness Chief Complaint: Dizziness and imbalance Primary Care Provider: Pippa Reyna DO 68-year-old female with past medical significant for type 2 diabetes, hyperlipidemia, obstructive sleep apnea, hypertension, GERD, obesity presents with dizziness and imbalance going on since morning and and was getting worse. Patient checked her blood pressure it was running low and was not improving when she decided come to the hospital. Currently blood pressure is okay she feels better but still not back to normal. Denies any headache or blurred visions. No earaches. No runny nose or sore throat or cough. No difficulty swallowing. Appetite is okay. Eating and drinking okay. No chest pain or shortness of breath. No nausea or vomiting. No abdominal pain. No diarrhea. Normal bowel and bladder movements. Afebrile. Past medical history as mentioned above Past surgical history left carpal tunnel surgery, , colonoscopy, EGD, lumbosacral spine injection, ligation overdose, tonsillectomy, bilateral cataract surgery, cholecystectomy, revision of upper eyelid, ultrasound-guided breast biopsy right side. Social history . Smoking quit smoking in 1995 after 20 of smoking and started again in September 2001. Smokes half pack a day as per epic. No alcohol. No drug use. Family history father has arthritis, diabetes, [place], hypertension, prostate cancer. Mother has arthritis hypertension. Paternal grandfather had diabetes. Brother has hypertension. Allergies Allergy/AdvReac Type Severity Reaction Status Date / Time Penicillins Allergy RASH Verified 05/08/23 02:29 Home Medications Medication Instructions Recorded Confirmed Type aspirin 81 mg tablet,delayed 81 mg PO PM 01/01/22 05/08/23 History release atorvastatin 40 mg tablet 40 mg PO QPM 01/01/22 05/08/23 History cholecalciferol (vitamin D3) 25 25 mcg PO DAILY 01/01/22 05/08/23 History mcg (1,000 unit) tablet (Vitamin D3) coenzyme Q10 100 mg capsule (Co 100 mg PO QAM 01/01/22 05/08/23 History Q-10) losartan 100 mg tablet 100 mg PO QAM 01/01/22 05/08/23 History chlorthalidone 25 mg tablet 25 mg PO QAM 05/08/23 05/08/23 History diclofenac sodium 75 mg See Rx Instructions .Route .COMPLEX 05/08/23 05/08/23 History tablet,delayed release empagliflozin 25 mg tablet 25 mg PO QAM 05/08/23 05/08/23 History famotidine 20 mg tablet 20 mg PO AMHS 05/08/23 05/08/23 History krill 1,000 mg-omega-3 170 mg-dha 1 cap PO QAM 05/08/23 05/08/23 History 50 mg-epa 80 [id number] capsule (krill oil) multivitamin with minerals 1 tab PO DAILY 05/08/23 05/08/23 History (Multiple Vitamin-Minerals tablet) potassium chloride 10 mEq 10 meq PO BID 05/08/23 05/08/23 History capsule,extended release Past Med/Surg History Social History Smoking Status: Current every day smoker Tobacco Type: Cigarettes Hx Alcohol Use: No Hx Substance Use: No Preferred Language: Korean Communication Ability: Effective Manager Strategic Required: No Beliefs That Will Affect Care: None Current Living Situation: Spouse Current Living Situation Comment: patient is primary caregiver of her who is disabled and blind Feels Safe at Home: Yes Assistive Devices: CPAP Review of Systems Review of Systems: All systems reviewed & are unremarkable except as noted in Subjective Physical Exam Physical Exam: General- Not in distress Head- atraumatic Eyes- PERRL ENT- oropharynx clear Neck- supple, no JVD Lungs- clear to auscultation and percussion, no added sounds Heart- regular rate and rhythm; no murmur, no gallop. Abdomen- normal bowel sounds, soft, nontender, no distension Extremities- no pretibial edema, no erythema Neuro- alert, oriented x 3; PERRL, no facial palsy; no dysarthria; motor 5/5 bilaterally; coordination of movements normal, no pronator drift, sensations and position sense intact Skin- warm & dry Results & Data Results & Data Vital Signs (Past 12 Hours) Vital Signs Temp Pulse Resp BP Pulse Ox O2 Del Method 05/08/23 03:00 63 14 05/08/23 02:30 63 19 93 05/08/23 02:30 135/61 05/08/23 02:00 60 21 92 05/08/23 02:00 125/72 05/08/23 01:30 61 15 97 05/08/23 01:30 107/76 05/08/23 01:00 62 14 97 05/08/23 01:00 99/47 L 05/08/23 00:41 74 22 97 05/08/23 00:41 124/70 05/08/23 00:40 69 17 95 05/08/23 00:40 143/74 H 05/08/23 00:38 65 20 95 05/08/23 00:38 130/72 05/08/23 00:33 72 17 96 05/08/23 00:32 94/80 L 05/08/23 00:43 Room Air 05/07/23 20:50 36.1 C L 69 18 121/70 95 Room Air Diagnostic Findings Laboratory Results WBC 11.05 K/ul (4.8-10.8) H 05/07/23 20:53 RBC 4.45 M/uL (4.20-5.40) 05/07/23 20:53 Hgb 13.7 g/dl (12.0-16.0) 05/07/23 20:53 Hct 39.9 % (37.0-47.0) 05/07/23 20:53 MCV 89.7 fL (80.0-100.0) 05/07/23 20:53 MCH 30.8 pg (25.0-34.0) 05/07/23 20:53 MCHC 34.3 g/dL (32.0-36.0) 05/07/23 20:53 RDW Std Deviation 45.0 fL (36.4-46.3) 05/07/23 20:53 RDW Coeff of Janet 13.8 % (11.5-14.5) 05/07/23 20:53 Plt Count 227 K/uL (130-400) 05/07/23 20:53 MPV 9.6 fL (9.4-12.4) 05/07/23 20:53 Immature Gran % (Auto) 0.4 % 05/07/23 20:53 Neut % (Auto) 58.6 % 05/07/23 20:53 Lymph % (Auto) 28.9 % 05/07/23 20:53 [place] % (Auto) 6.4 % 05/07/23 20:53 Eos % (Auto) 5.2 % 05/07/23 20:53 Baso % (Auto) 0.5 % 05/07/23 20:53 Neut # (Auto) 6.48 K/uL (1.40-6.50) 05/07/23 20:53 Lymph # (Auto) 3.19 K/uL (1.2-3.4) 05/07/23 20:53 [place] # (Auto) 0.71 K/uL (0.11-0.59) H 05/07/23 20:53 Eos # (Auto) 0.58 K/uL (0-0.50) H 05/07/23 20:53 Baso # (Auto) 0.05 K/uL (0-0.2) 05/07/23 20:53 Immature Gran # (Auto) 0.04 K/uL (0.01-0.20) 05/07/23 20:53 PT 10.8 Seconds (9.0-12.0) 05/07/23 21:40 INR 1.0 (0.9-1.1) 05/07/23 21:40 APTT 25.8 Seconds (21.0-31.0) 05/07/23 21:40 PTT Ratio 0.9 05/07/23 21:40 Sodium 141 mmol/L (136-145) 05/07/23 20:53 Potassium 3.1 mmol/L (3.5-5.1) L 05/07/23 20:53 Chloride 100 mmol/L (98-107) 05/07/23 20:53 Carbon Dioxide 32 mmol/L (21-32) 05/07/23 20:53 Anion Gap 9 (3-11) 05/07/23 20:53 BUN 25 mg/dl (6-23) H 05/07/23 20:53 Creatinine 1.46 mg/dl (0.6-1.2) H 05/07/23 20:53 Est Cr Clr Drug Dosing 40.4 ml/min 05/07/23 20:53 Est GFR ( Amer) 42.1 ml/min 05/07/23 20:53 Est GFR (Non-Af Amer) 36.3 ml/min 05/07/23 20:53 BUN/Creatinine Ratio 17.1 (10-20) 05/07/23 20:53 Glucose 123 mg/dl (70-99(Fasting)) H 05/07/23 20:53 Calcium 9.7 mg/dl (8.6-10.3) 05/07/23 20:53 Magnesium 1.7 mg/dl (1.7-2.4) 05/07/23 20:53 Total Bilirubin 0.3 mg/dl (0.2-1.0) 05/07/23 20:53 AST 19 U/L (13-39) 05/07/23 20:53 ALT 17 U/L (7-52) 05/07/23 20:53 Alkaline Phosphatase 72 U/L (34-104) 05/07/23 20:53 Troponin I High Sens 6.5 pg/ml (0-14) 05/08/23 00:00 Total Protein 7.2 gm/dl (6.0-8.3) 05/07/23 20:53 Albumin 4.4 gm/dl (3.4-5.0) 07/27/23 20:53 Globulin 2.8 gm/dl (2.5-4.0) 05/07/23 20:53 Albumin/Globulin Ratio 1.6 (0.9-2) 05/07/23 20:[address] 05/07/23 21:45 Exam(s): CT HEAD Without Contrast EXAM: CT Head Without Intravenous Contrast CLINICAL HISTORY: Reason for exam: neuro deficit, acute stroke suspected. TECHNIQUE: Axial computed tomography images of the head/brain without intravenous contrast. CTDI is 13.89 mGy and DLP is 521.34 mGy-cm. Automated exposure control was utilized for the study. A dose lowering technique was utilized adhering to the principles of ALARA. COMPARISON: None. FINDINGS: Brain: Mild generalized brain atrophy. 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 No hemorrhage. Ventricles: Unremarkable. No ventriculomegaly. Bones/joints: Unremarkable. No acute fracture. Soft tissues: Unremarkable. Sinuses: Scattered focal areas of mucosal thickening throughout the bilateral adenoids, most compatible with sequela of chronic or prior sinusitis. Mastoid air cells: Unremarkable as visualized. No mastoid effusion. IMPRESSION: 1. Chronic changes as described. No acute intracranial hemorrhage or space-occupying lesion. 2. Mild ethmoid sinus disease as described. Electronically signed by: Sushila Yao MD 05/08/23 01:56 AM Head CTA 05/07/23 21:45 Exam(s): CTA HEAD With Contrast IV Amt: 115 ml optiray 350 EXAM: CT Angiography Head With Intravenous Contrast CLINICAL HISTORY: Reason for exam: neuro deficit, acute stroke suspected. TECHNIQUE: Axial computed tomographic angiography images of the head with intravenous contrast. CTDI is 36.9 mGy and DLP is 702.46 mGy-cm. Automated exposure control was utilized for the study. A dose lowering technique was utilized adhering to the principles of ALARA. MIP reconstructed images were created and reviewed. CONTRAST: Patient received 115 ml optiray 350 of IV contrast COMPARISON: None. FINDINGS: Right internal carotid artery: Mild calcified atherosclerotic disease involving the cavernous portion of the right internal carotid artery with less than 50% stenosis. No aneurysm. Right anterior cerebral artery: Unremarkable. No occlusion or significant stenosis. No aneurysm. Right middle cerebral artery: Unremarkable. No occlusion or significant stenosis. No aneurysm. Right posterior cerebral artery: Unremarkable. No occlusion or significant stenosis. No aneurysm. Right vertebral artery: Unremarkable as visualized. Left internal carotid artery: Mild calcified plaque involving the cavernous portion of the left internal carotid artery with less than 50% stenosis. No aneurysm. Left anterior cerebral artery: Unremarkable. No occlusion or significant stenosis. No aneurysm. Left middle cerebral artery: Unremarkable. No occlusion or significant stenosis. No aneurysm. Left posterior cerebral artery: Unremarkable. No occlusion or significant stenosis. No aneurysm. Left vertebral artery: Unremarkable as visualized. Basilar artery: Unremarkable. No occlusion or significant stenosis. No aneurysm. IMPRESSION: Atherosclerotic disease predominantly in the cavernous portion of bilateral internal carotid arteries, otherwise no significant stenosis, occlusion or aneurysm involving the [place]. Electronically signed by: Sushila Yao MD 05/08/23 02:01 AM Neck CTA 05/07/23 21:45 Exam(s): CTA NECK With Contrast IV Amt: 115 ml optiray 350 EXAM: CT Angiography Neck With Intravenous Contrast CLINICAL HISTORY: Reason for exam: neuro deficit, acute stroke suspected. TECHNIQUE: Routine carotid CT angiography protocol was performed with intravenous contrast. NASCET criteria using the distal ICAs for comparison were used for evaluation of stenoses. CTDI is 36.9 mGy and DLP is 702.46 mGy-cm. Automated exposure control was utilized for the study. A dose lowering technique was utilized adhering to the principles of ALARA. MIP reconstructed images were created and reviewed. CONTRAST: Patient received 115 ml optiray 350 of IV contrast COMPARISON: None. FINDINGS: VASCULATURE: Right common carotid artery: Unremarkable. No occlusion or significant stenosis. No dissection. Right internal carotid artery: Mild to moderate calcified plaque at the right carotid bulb. Mild to moderate calcified plaque at the origin and proximal right internal carotid artery with less than 50% diameter narrowing. Right external carotid artery: Unremarkable. No occlusion. Right vertebral artery: Unremarkable. No occlusion or significant stenosis. No dissection. Left common carotid artery: Unremarkable. No occlusion or significant stenosis. No dissection. Left internal carotid artery: Minimal calcified plaque at the origin of the left internal carotid artery with no stenosis. No dissection. Left external carotid artery: Unremarkable. No occlusion. Left vertebral artery: Dominant left-sided vertebral artery. No occlusion or significant stenosis. No dissection. Aorta: Atherosclerotic disease throughout the aorta with no dissection or aneurysm. NECK: Bones/joints: Unremarkable. Soft tissues: Unremarkable. Lung apices: Clear. CAROTID STENOSIS REFERENCE USING NASCET CRITERIA: % ICA stenosis = (1 - narrowest ICA diameter/diameter of distal cervical ICA) x 100. Mild - <50% stenosis. Moderate - 50-69% stenosis. Severe - 70-94% stenosis. Near occlusion - 95-99% stenosis. Occluded - 100% stenosis. IMPRESSION: Mild atherosclerotic disease predominantly in the carotid bulb region, right more than left otherwise no significant stenosis, occlusion or aneurysm involving the bilateral carotid and vertebral arteries. Electronically signed by: Sushila Yao MD 05/08/23 01:59 AM ECG Additional Comments: ECG normal sinus rhythm at a rate of 66. Nonspecific ST abnormalities. Prolonged QTc of 503. Code Status & VTE Plan VTE Prophylaxis Plan VTE Prophylaxis will be ordered: Yes
[2023-05-08] MEDS ORDERED: MAGNESIUM SULFATE / D5W 1 GM/100 ML BAG IV STA (04:06)
[2023-05-08] MEDS ORDERED: GLUCOSE 10 TAB/TUBE PO PRN (06:16)
[2023-05-08] MEDS ORDERED: PHARMACIST DISCHARGE MED REC CONSULT PRN (06:16)
[2023-05-08] MEDS ORDERED: DEXTROSE 50% 50 ML SYRINGE IV PRN (06:16)
[2023-05-08] MEDS ORDERED: SODIUM CHLORIDE 0.9% 1000ML 1,000 ML IV SCH (06:16)
[2023-05-08] MEDS ORDERED: ACETAMINOPHEN 325 MG TAB PO PRN (06:16)
[2023-05-08] MEDS ORDERED: GLUCOSE 40% GEL 15 GM TUBE PO PRN (06:16)
[2023-05-08] MEDS ORDERED: GLUCAGON FOR INJ 1 MG VIAL SQ PRN (06:16)
[2023-05-08] MEDS ORDERED: CARBOHYDRATES FOR HYPOGLYCEMIA PO PRN (06:16)
[2023-05-08] MEDS ORDERED: POLYETHYLENE (MIRALAX) 17 GM PACK PO PRN (06:16)
[2023-05-08] MEDS ORDERED: GADOBUTROL 65ML VIAL IV ONE (07:26)
--- NOTE | 2023-05-08 07:56 | Magnetic Resonance Report ---
MRI OF THE BRAIN COMBO CLINICAL HISTORY: Dizziness. Loss of balance. COMPARISON STUDY: CT of the brain dated 05/08/2023. TECHNIQUE: MRI of the brain was performed utilizing various T1 and T2-weighted sequences in the axial , sagittal, and coronal planes. Contrast-enhanced sequences were acquired following the administratio n of 9.7 cc of Gadavist. FINDINGS: Brain parenchyma: There is age-related involutional change noting minimal microangiopathic disease. T here is no hemorrhage or mass effect. There is no restricted diffusion to suggest acute ischemia. No enhancing mass lesion is identified on the postcontrast images. Ribeiro-white matter differentiation is preserved. No extra-axial fluid collection is seen. The cerebellar tonsils are normal in configuratio n. Ventricles, sulci, and cisterns: Prominent secondary to involutional change. Pituitary and sella: Unremarkable. Intracranial vasculature: Normal flow voids are maintained at the skull base. Orbits: The bony orbits are grossly intact. Orbital contents are normal in appearance noting bilatera l ocular lens implants. Sinuses and mastoids: There is [id number] mucosal thickening within the ethmoid sinuses. The re maining paranasal sinuses and mastoid air cells are clear. Calvarium: Unremarkable. Cervical cord: Partially visualized cervical spinal cord is normal in morphology and signal intensity . IMPRESSION: No acute intracranial abnormality. ACT 112: Negative or not required by law. Electronically signed by: Armando Rios M.D. 05/08/2023 7:55 AM
--- NOTE | 2023-05-08 08:00 | Electrocardiogram Report ---
Test Reason : Blood Pressure : / mmHG Vent. 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
--- NOTE | 2023-05-08 08:00 | Electrocardiogram Report ---
Test Reason : Blood Pressure : / mmHG Vent. Rate : 066 BPM Atrial Rate : 066 BPM P-R Int : 156 ms QRS Dur : 100 ms QT Int : 480 ms P-R-T Axes : 054 -21 -12 degrees QTc Int : 503 ms Normal sinus rhythm Nonspecific ST abnormality Prolonged QT Abnormal ECG When compared with ECG of 07-MAY-2023 21:35, Criteria for Anterior infarct are no longer Present Minimal criteria for Inferior infarct are no longer Present T wave inversion no longer evident in Anterior leads Confirmed by Zachary Zamora ([id number]) on 05/08/2023 8:00:00 AM Referred By: REFERRED SELF Confirmed By:Zachary Zamora
[2023-05-08] MEDS ORDERED: LOSARTAN POTASSIUM 50 MG TAB PO SCH (09:00)
[2023-05-08] MEDS ORDERED: NON-FORMULARY MEDICATION (Coenzyme Q10 [Co Q-10] 100 mg Capsule) PO SCH (09:00)
[2023-05-08 09:03] LABS: Calcium 9.6 mg/dl (8.6-10.3); Creatinine Clr Calc Pharmacy 53.6 ml/min; Est GFR (African American) 59.3 ml/min; Est GFR (Non-African American) 51.2 ml/min; Potassium 3.4 mmol/L (3.5-5.1)
[2023-05-08] MEDS: CHOLECALCIFEROL 1,000 UNITS 25 MCG TAB PO SCH (10:19)
[2023-05-08] MEDS: FAMOTIDINE 20 MG TAB PO SCH ×2 (10:19→20:03)
[2023-05-08] MEDS: CEROVITE ADV FORMULA TAB PO SCH (10:19)
[2023-05-08] MEDS: INSULIN ASPART PER UNIT CHARGE SC SCH ×4 (10:20→21:20)
--- NOTE | 2023-05-08 10:38 | Electrocardiogram Report ---
Test Reason : Blood Pressure : / mmHG Vent. Rate : 066 BPM Atrial Rate : 066 BPM P-R Int : 170 ms QRS Dur : 082 ms QT Int : 426 ms P-R-T Axes : 052 -34 -21 degrees QTc Int : 446 ms Normal sinus rhythm Left axis deviation Low voltage QRS Old Inferior infarct Nonspecific T wave abnormality Anterior leads Abnormal ECG When compared with ECG of 08-MAY-2023 00:36, Criteria for Inferior infarct now present Otherwise no significant change Confirmed by Zachary Zamora ([id number]) on 05/08/2023 10:37:50 AM Referred By: REFERRED SELF Confirmed By:Zachary Zamora
[2023-05-08] MEDS: ATORVASTATIN 40 MG TAB PO SCH (20:03)
[2023-05-08] MEDS: ASPIRIN 81 MG ECTAB PO SCH (20:03)
[2023-05-09 06:48] LABS: Basophils # (auto) 0.07 K/uL (0-0.2); Basophils % (auto) 0.8 %; Eosinophils # (auto) 0.35 K/uL (0-0.50); Eosinophils % (auto) 4.1 %; Hematocrit (blood only) 37.7 % (37.0-47.0); Hemoglobin 12.7 g/dl (12.0-16.0); Immature Granulocytes # (auto) 0.04 K/uL (0.01-0.20); Immature Granulocytes % (auto) 0.5 %; Lymphocytes # (auto) 2.57 K/uL (1.2-3.4); Lymphocytes % (auto) 30.4 %; Mean Corpuscular Hgb Conc 33.7 g/dL (32.0-36.0); Mean Platelet Volume 9.4 fL (9.4-12.4); Monocytes # (auto) 0.57 K/uL (0.11-0.59); Monocytes % (auto) 6.7 %; Neutrophils # (auto) 4.86 K/uL (1.40-6.50); Neutrophils % (auto) 57.5 %; Platelet Count 189 K/uL (130-400); RDW Coefficient of Variation 13.7 % (11.5-14.5); RDW Standard Deviation 46.4 fL (36.4-46.3); White Blood Count 8.46 K/ul (4.8-10.8)
[2023-05-09 07:09] LABS: BUN Creatinine Ratio 19.5 (10-20); Calcium 9.4 mg/dl (8.6-10.3); Chol HDL Ratio 4.4 (0-5); Creatinine Clr Calc Pharmacy 52.8 ml/min; Est GFR (African American) 57.4 ml/min; Est GFR (Non-African American) 49.6 ml/min; Potassium 3.1 mmol/L (3.5-5.1)
[2023-05-09] MEDS ORDERED: POTASSIUM CHLORIDE CRTAB 20 MEQ TABCR PO STA (08:02)
[2023-05-09 09:04] LABS: Estimated Average Glucose 157 mg/dl; Hemoglobin A1C 7.1 % (4.5-5.6)
[2023-05-09] MEDS: CEROVITE ADV FORMULA TAB PO SCH (09:10)
[2023-05-09] MEDS: FAMOTIDINE 20 MG TAB PO SCH ×2 (09:10→20:39)
[2023-05-09] MEDS: CHOLECALCIFEROL 1,000 UNITS 25 MCG TAB PO SCH (09:10)
[2023-05-09] MEDS: INSULIN ASPART PER UNIT CHARGE SC SCH ×4 (09:11→20:37)
--- NOTE | 2023-05-09 17:43 | Hospitalist Progress Note ---
Date of Service May 09, 2023 Assessment & Plan (1) Dizziness: Plan: 68-year-old female with past medical significant for type 2 diabetes, hyperlipidemia, obstructive sleep apnea, hypertension, GERD, obesity presents with dizziness and imbalance going on since morning. DIZZINESS LIKELY SECONDARY TO HYPOTENSION, DEHYDRATION Brain MRI: No acute CVA CT head and CTA head and neck unremarkable except for less than 50% right ICA stenosis Echo: EF 60 to 65%, grade 1 diastolic dysfunction -- Dizziness resolved -- Blood pressure systolic 110s, off usual blood pressure medications including losartan, chlorthalidone Continue to monitor closely --PT and OT evaluation --Already on aspirin and Lipitor Refer to vascular surgery service for right ICA stenosis, less than 50% Hypertension --Patient presenting with hypotension Off blood pressure medications we will monitor closely Hypokalemia Potassium 3.1 --We will replace Prolonged QTc Potassium replaced Resolved Diabetes holding Jardiance A1c 7.1 Obstructive sleep apnea CPAP nightly Hyperlipidemia On Lipitor Triglycerides 306 LDL 20 HDL 24 Obesity needs counseling DVT prophylaxis SCDs Full code Disposition Anticipate return to home tomorrow Admission and Anticipated Discharge Date Admission Date: May 08, 2023 Subjective Follow-up for dizziness, hypotension, etc. Resting in bed, sleeping but easily awakened States she feels improved today compared to yesterday Denies dizziness, chest pain, shortness of breath No other new symptoms Review of Systems Review of Systems: all noted and negative except for above Physical Exam Physical Exam: General- oriented x 3, not in distress, speaks in sentences with no effort or accessory muscle use Eyes- anicteric Neck- no JVD Lungs- clear breath sounds bilaterally, no rales/wheezes Heart- normal rate, regular rhythm; no murmurs Abdomen- normal bowel sounds, nondistended, soft, nontender Extremities- no pretibial edema, no calf tenderness Neuro- alert, oriented x 3; no gross focal neurologic deficits Skin- warm & dry Results & Data Results & Data Vital Signs (Past 12 Hours) Vital Signs Temp Pulse Pulse Resp BP Pulse Ox O2 Del Method 05/09/23 16:09 62 05/09/23 15:28 36.9 C 58 L 18 117/75 93 Room Air 05/09/23 08:28 36.4 C L 55 L 19 118/62 92 Room Air 05/09/23 07:18 52 L all noted and reviewed including below
[2023-05-09] MEDS: ASPIRIN 81 MG ECTAB PO SCH (20:39)
[2023-05-09] MEDS: ATORVASTATIN 40 MG TAB PO SCH (20:39)
[2023-05-10 06:08] LABS: Calcium 9.6 mg/dl (8.6-10.3); Creatinine Clr Calc Pharmacy 59.5 ml/min; Est GFR (African American) 66.6 ml/min; Est GFR (Non-African American) 57.4 ml/min; Potassium 3.4 mmol/L (3.5-5.1)
[2023-05-10 06:16] LABS: Basophils # (auto) 0.06 K/uL (0-0.2); Basophils % (auto) 0.7 %; Eosinophils % (auto) 3.4 %; Hematocrit (blood only) 37.2 % (37.0-47.0); Hemoglobin 12.5 g/dl (12.0-16.0); Immature Granulocytes # (auto) 0.05 K/uL (0.01-0.20); Immature Granulocytes % (auto) 0.6 %; Lymphocytes # (auto) 2.79 K/uL (1.2-3.4); Lymphocytes % (auto) 31.5 %; Mean Corpuscular Hemoglobin 30.9 pg (25.0-34.0); Mean Corpuscular Hgb Conc 33.6 g/dL (32.0-36.0); Mean Corpuscular Volume 91.9 fL (80.0-100.0); Mean Platelet Volume 10.1 fL (9.4-12.4); Monocytes # (auto) 0.58 K/uL (0.11-0.59); Monocytes % (auto) 6.5 %; Neutrophils # (auto) 5.08 K/uL (1.40-6.50); Neutrophils % (auto) 57.3 %; Platelet Count 199 K/uL (130-400); RBC Morphology Unremarkable; RDW Coefficient of Variation 13.5 % (11.5-14.5); RDW Standard Deviation 45.2 fL (36.4-46.3); Red Blood Count 4.05 M/uL (4.20-5.40); White Blood Count 8.86 K/ul (4.8-10.8)
[2023-05-10] MEDS ORDERED: POTASSIUM CHLORIDE CRTAB 20 MEQ TABCR PO STA (08:03)
[2023-05-10] MEDS: CEROVITE ADV FORMULA TAB PO SCH (08:39)
[2023-05-10] MEDS: FAMOTIDINE 20 MG TAB PO SCH (08:39)
[2023-05-10] MEDS: CHOLECALCIFEROL 1,000 UNITS 25 MCG TAB PO SCH (08:39)
[2023-05-10] MEDS: INSULIN ASPART PER UNIT CHARGE SC SCH (08:40)
[2023-05-10] MEDS ORDERED: STROKE PATIENT DISCHARGE STA (11:58)
--- NOTE | 2023-05-10 14:30 | Hospitalist Progress Note ---
Date of Service May 10, 2023 Assessment & Plan (1) Dizziness: Plan: 68-year-old female with past medical significant for type 2 diabetes, hyperlipidemia, obstructive sleep apnea, hypertension, GERD, obesity presents with dizziness and imbalance going on since morning. DIZZINESS LIKELY SECONDARY TO HYPOTENSION, DEHYDRATION Brain MRI: No acute CVA CT head and CTA head and neck unremarkable except for less than 50% right ICA stenosis Echo: EF 60 to 65%, grade 1 diastolic dysfunction -- Upon checking patient's medication bottles from home, she is taking losartan, atenolol, chlorthalidone, Lasix daily --All above medications discontinued while admitted -- Dizziness resolved -- Blood pressure systolic 110s to 120s, off usual blood pressure medications -- Advised to stop losartan, atenolol, chlorthalidone Use Lasix 20 mg p.o. daily as needed for leg swelling --Monitor blood pressure closely patient --Already on aspirin and Lipitor Refer to vascular surgery service for right ICA stenosis, less than 50% Advised to stop smoking Hypertension -- Management of medications per above Hypokalemia --Continue potassium 20 mill equivalents daily Prolonged QTc Potassium replaced Resolved Diabetes Continue Jardiance A1c 7.1 Obstructive sleep apnea CPAP nightly Hyperlipidemia On Lipitor Triglycerides 306 LDL 20 HDL 24 Obesity counseling DVT prophylaxis SCDs Full code Disposition Discharge to home Follow-up with primary care physician in 1 week plan of care discussed with patient in detail and at length all questions answered She is understanding, agreeable, comfortable with the plan of care Admission and Anticipated Discharge Date Admission Date: May 09, 2023 Subjective Follow-up for hypertension, dizziness, etc. Seen resting in bed, comfortable, not in distress States she feels much better overall No dizziness, lightheadedness, ambulating well with no problems No other new symptoms States she is ready for discharge Review of Systems Review of Systems: all noted and negative except for above Physical Exam Physical Exam: General- oriented x 3, not in distress, speaks in sentences with no effort or accessory muscle use Eyes- anicteric Neck- no JVD Lungs- clear breath sounds bilaterally, no rales/wheezes Heart- normal rate, regular rhythm; no murmurs Abdomen- normal bowel sounds, nondistended, soft, nontender Extremities- no pretibial edema, no calf tenderness Neuro- alert, oriented x 3; no gross focal neurologic deficits Skin- warm & dry Results & Data Results & Data Vital Signs (Past 12 Hours) Vital Signs Temp Pulse Pulse Pulse Resp BP BP 05/10/23 11:55 36.9 C 58 L 58 L 16 122/81 130/87 05/10/23 11:24 36.9 C 58 L 16 130/87 05/10/23 08:05 53 L 05/10/23 07:26 36.9 C 55 L 16 122/81 05/10/23 03:29 36.4 C L 56 L 18 113/61 Pulse Ox O2 Del Method 05/10/23 11:55 97 05/10/23 11:24 97 Room Air 05/10/23 08:05 05/10/23 07:26 93 Room Air 05/10/23 03:29 93 Room Air all noted and reviewed including below
--- NOTE | 2023-05-10 14:33 | Discharge Summary ---
Discharge Summary Date of Service May 10, 2023 Notes For Next Care Provider Medication Changes From Visit Losartan, atenolol, chlorthalidone discontinued Lasix 20 mg p.o. daily changed to as needed for leg swelling Admission HPI Per Admitting Provider 68-year-old female with past medical significant for type 2 diabetes, hyperlipidemia, obstructive sleep apnea, hypertension, GERD, obesity presents with dizziness and imbalance going on since morning and and was getting worse. Patient checked her blood pressure it was running low and was not improving when she decided come to the hospital. Currently blood pressure is okay she feels better but still not back to normal. Denies any headache or blurred visions. No earaches. No runny nose or sore throat or cough. No difficulty swallowing. Appetite is okay. Eating and drinking okay. No chest pain or shortness of breath. No nausea or vomiting. No abdominal pain. No diarrhea. Normal bowel and bladder movements. Afebrile. Past medical history as mentioned above Past surgical history left carpal tunnel surgery, , colonoscopy, EGD, lumbosacral spine injection, ligation overdose, tonsillectomy, bilateral cataract surgery, cholecystectomy, revision of upper eyelid, ultrasound-guided breast biopsy right side. Social history . Smoking quit smoking in 1995 after 20 of smoking and started again in September 2001. Smokes half pack a day as per [place]. No alcohol. No drug use. Family history father has arthritis, diabetes, HI, hypertension, prostate cancer. Mother has arthritis hypertension. Paternal grandfather had diabetes. Brother has hypertension. Admission Exam Per Admitting Provider General- Not in distress Head- atraumatic Eyes- PERRL ENT- oropharynx clear Neck- supple, no JVD Lungs- clear to auscultation and percussion, no added sounds Heart- regular rate and rhythm; no murmur, no gallop. Abdomen- normal bowel sounds, soft, nontender, no distension Extremities- no pretibial edema, no erythema Neuro- alert, oriented x 3; PERRL, no facial palsy; no dysarthria; motor 5/5 bilaterally; coordination of movements normal, no pronator drift, sensations and position sense intact Skin- warm & dry Principal Dx & Hospital Course #1 = Principal Diagnosis (1) Dizziness: 68-year-old female with past medical significant for type 2 diabetes, hyperlipidemia, obstructive sleep apnea, hypertension, GERD, obesity presents with dizziness and imbalance going on since morning. DIZZINESS LIKELY SECONDARY TO HYPOTENSION, DEHYDRATION Brain MRI: No acute CVA CT head and CTA head and neck unremarkable except for less than 50% right ICA stenosis Echo: EF 60 to 65%, grade 1 diastolic dysfunction -- Upon checking patient's medication bottles from home, she is taking losartan, atenolol, chlorthalidone, Lasix daily --All above medications discontinued while admitted -- Dizziness resolved -- Blood pressure systolic 110s to 120s, off usual blood pressure medications -- Advised to stop losartan, atenolol, chlorthalidone Use Lasix 20 mg p.o. daily as needed for leg swelling --Monitor blood pressure closely patient --Already on aspirin and Lipitor Refer to vascular surgery service for right ICA stenosis, less than 50% Advised to stop smoking Hypertension -- Management of medications per above Hypokalemia --Continue potassium 20 mill equivalents daily Prolonged QTc Potassium replaced Resolved Diabetes Continue Jardiance A1c 7.1 Obstructive sleep apnea CPAP nightly Hyperlipidemia On Lipitor Triglycerides 306 LDL 20 HDL 24 Obesity counseling DVT prophylaxis SCDs Full code Disposition Discharge to home Follow-up with primary care physician in 1 week plan of care discussed with patient in detail and at length all questions answered She is understanding, agreeable, comfortable with the plan of care Discharge Exam General- oriented x 3, not in distress, speaks in sentences with no effort or accessory muscle use Eyes- anicteric Neck- no JVD Lungs- clear breath sounds bilaterally, no rales/wheezes Heart- normal rate, regular rhythm; no murmurs Abdomen- normal bowel sounds, nondistended, soft, nontender Extremities- no pretibial edema, no calf tenderness Neuro- alert, oriented x 3; no gross focal neurologic deficits Skin- warm & dry Updated Medication List Medication Instructions Recorded Confirmed Type aspirin 81 mg tablet,delayed 81 mg PO PM 01/01/22 05/08/23 History release atorvastatin 40 mg tablet 40 mg PO QPM 01/01/22 05/08/23 History cholecalciferol (vitamin D3) 25 25 mcg PO DAILY 01/01/22 05/08/23 History mcg (1,000 unit) tablet (Vitamin D3) coenzyme Q10 100 mg capsule (Co 100 mg PO QAM 01/01/22 05/08/23 History Q-10) diclofenac sodium 75 mg See Rx Instructions .Route .COMPLEX 05/08/23 05/08/23 History tablet,delayed release empagliflozin 25 mg tablet 25 mg PO QAM 05/08/23 05/08/23 History famotidine 20 mg tablet 20 mg PO AMHS 05/08/23 05/08/23 History krill 1,000 mg-omega-3 170 mg-dha 1 cap PO QAM 05/08/23 05/08/23 History 50 mg-epa 80 [id number]-xfozl capsule (krill oil) multivitamin with minerals 1 tab PO DAILY 05/08/23 05/08/23 History (Multiple Vitamin-Minerals tablet) potassium chloride 10 mEq 10 meq PO BID 05/08/23 05/08/23 History capsule,extended release Hospital Stay Data Consultations 05/08/23 02:09 ED Decision to Admit Stat Diagnostic Imagining Performed Laboratory Results WBC 8.86 K/ul (4.8-10.8) 05/10/23 04:51 RBC 4.05 M/uL (4.20-5.40) L 05/10/23 04:51 Hgb 12.5 g/dl (12.0-16.0) 05/10/23 04:51 Hct 37.2 % (37.0-47.0) 05/10/23 04:51 MCV 91.9 fL (80.0-100.0) 05/10/23 04:51 MCH 30.9 pg (25.0-34.0) 05/10/23 04:51 MCHC 33.6 g/dL (32.0-36.0) 05/10/23 04:51 RDW Std Deviation 45.2 fL (36.4-46.3) 05/10/23 04:51 RDW Coeff of Janet 13.5 % (11.5-14.5) 05/10/23 04:51 Plt Count 199 K/uL (130-400) 05/10/23 04:51 MPV 10.1 fL (9.4-12.4) 05/10/23 04:51 Immature Gran % (Auto) 0.6 % 05/10/23 04:51 Neut % (Auto) 57.3 % 05/10/23 04:51 Lymph % (Auto) 31.5 % 05/10/23 04:51 Door % (Auto) 6.5 % 05/10/23 04:51 Eos % (Auto) 3.4 % 05/10/23 04:51 Baso % (Auto) 0.7 % 05/10/23 04:51 Neut # (Auto) 5.08 K/uL (1.40-6.50) 05/10/23 04:51 Lymph # (Auto) 2.79 K/uL (1.2-3.4) 05/10/23 04:51 Door # (Auto) 0.58 K/uL (0.11-0.59) 05/10/23 04:51 Eos # (Auto) 0.30 K/uL (0-0.50) 05/10/23 04:51 Baso # (Auto) 0.06 K/uL (0-0.2) 05/10/23 04:51 Immature Gran # (Auto) 0.05 K/uL (0.01-0.20) 05/10/23 04:51 RBC Morphology Unremarkable 05/10/23 04:51 PT 10.8 Seconds (9.0-12.0) 05/07/23 21:40 INR 1.0 (0.9-1.1) 05/07/23 21:40 APTT 25.8 Seconds (21.0-31.0) 05/07/23 21:40 PTT Ratio 0.9 05/07/23 21:40 Sodium 141 mmol/L (136-145) 05/10/23 04:51 Potassium 3.4 mmol/L (3.5-5.1) L 05/10/23 04:51 Chloride 105 mmol/L (98-107) 05/10/23 04:51 Carbon Dioxide 27 mmol/L (21-32) 05/10/23 04:51 Anion Gap 9 (3-11) 05/10/23 04:51 BUN 22 mg/dl (6-23) 05/10/23 04:51 Creatinine 1.00 mg/dl (0.6-1.2) 05/10/23 04:51 Est Cr Clr Drug Dosing 59.5 ml/min 05/10/23 04:51 Est GFR ( Amer) 66.6 ml/min 05/10/23 04:51 Est GFR (Non-Af Amer) 57.4 ml/min 05/10/23 04:51 BUN/Creatinine Ratio 22.0 (10-20) H 05/10/23 04:51 Glucose 118 mg/dl (70-99(Fasting)) H 05/10/23 04:51 POC Glucose 155 mg/dl (70-99) H 05/10/23 12:08 Estimat Average Glucose 157 mg/dl 05/09/23 06:16 Hemoglobin A1c 7.1 % (4.5-5.6) H 05/09/23 06:16 Calcium 9.6 mg/dl (8.6-10.3) 05/10/23 04:51 Magnesium 1.7 mg/dl (1.7-2.4) 05/07/23 20:53 Total Bilirubin 0.3 mg/dl (0.2-1.0) 05/07/23 20:53 AST 19 U/L (13-39) 05/07/23 20:53 ALT 17 U/L (7-52) 05/07/23 20:53 Alkaline Phosphatase 72 U/L (34-104) 05/07/23 20:53 Troponin I High Sens 6.5 pg/ml (0-14) 05/08/23 00:00 Total Protein 7.2 gm/dl (6.0-8.3) 05/07/23 20:53 Albumin 4.4 gm/dl (3.4-5.0) 05/07/23 20:53 Globulin 2.8 gm/dl (2.5-4.0) 05/07/23 20:53 Albumin/Globulin Ratio 1.6 (0.9-2) 05/07/23 20:53 Triglycerides 306 mg/dl (0-150) H 05/09/23 06:16 Cholesterol 105 mg/dl (0-200) 05/09/23 06:16 LDL Cholesterol, Calc 20 mg/dl 05/09/23 06:16 VLDL Cholesterol, Calc 61 mg/dl (0-30) H 05/09/23 06:16 HDL Cholesterol 24 mg/dl 05/09/23 06:16 Cholesterol/HDL Ratio 4.4 (0-5) 05/09/23 06:[address] 05/07/23 21:45 Exam(s): CT HEAD Without Contrast EXAM: CT Head Without Intravenous Contrast CLINICAL HISTORY: Reason for exam: neuro deficit, acute stroke suspected. TECHNIQUE: Axial computed tomography images of the head/brain without intravenous contrast. CTDI is 13.89 mGy and DLP is 521.34 mGy-cm. Automated exposure control was utilized for the study. A dose lowering technique was utilized adhering to the principles of ALARA. COMPARISON: None. FINDINGS: Brain: Mild generalized brain atrophy. 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 No hemorrhage. Ventricles: Unremarkable. No ventriculomegaly. Bones/joints: Unremarkable. No acute fracture. Soft tissues: Unremarkable. Sinuses: Scattered focal areas of mucosal thickening throughout the bilateral adenoids, most compatible with sequela of chronic or prior sinusitis. Mastoid air cells: Unremarkable as visualized. No mastoid effusion. IMPRESSION: 1. Chronic changes as described. No acute intracranial hemorrhage or space-occupying lesion. 2. Mild ethmoid sinus disease as described. Electronically signed by: Sushila Yao MD 05/08/23 01:56 AM Head CTA 05/07/23 21:45 Exam(s): CTA HEAD With Contrast IV Amt: 115 ml optiray 350 EXAM: CT Angiography Head With Intravenous Contrast CLINICAL HISTORY: Reason for exam: neuro deficit, acute stroke suspected. TECHNIQUE: Axial computed tomographic angiography images of the head with intravenous contrast. CTDI is 36.9 mGy and DLP is 702.46 mGy-cm. Automated exposure control was utilized for the study. A dose lowering technique was utilized adhering to the principles of ALARA. MIP reconstructed images were created and reviewed. CONTRAST: Patient received 115 ml optiray 350 of IV contrast COMPARISON: None. FINDINGS: Right internal carotid artery: Mild calcified atherosclerotic disease involving the cavernous portion of the right internal carotid artery with less than 50% stenosis. No aneurysm. Right anterior cerebral artery: Unremarkable. No occlusion or significant stenosis. No aneurysm. Right middle cerebral artery: Unremarkable. No occlusion or significant stenosis. No aneurysm. Right posterior cerebral artery: Unremarkable. No occlusion or significant stenosis. No aneurysm. Right vertebral artery: Unremarkable as visualized. Left internal carotid artery: Mild calcified plaque involving the cavernous portion of the left internal carotid artery with less than 50% stenosis. No aneurysm. Left anterior cerebral artery: Unremarkable. No occlusion or significant stenosis. No aneurysm. Left middle cerebral artery: Unremarkable. No occlusion or significant stenosis. No aneurysm. Left posterior cerebral artery: Unremarkable. No occlusion or significant stenosis. No aneurysm. Left vertebral artery: Unremarkable as visualized. Basilar artery: Unremarkable. No occlusion or significant stenosis. No aneurysm. IMPRESSION: Atherosclerotic disease predominantly in the cavernous portion of bilateral internal carotid arteries, otherwise no significant stenosis, occlusion or aneurysm involving the [place]. Electronically signed by: Sushila Yao MD 05/08/23 02:01 AM Neck CTA 05/07/23 21:45 Exam(s): CTA NECK With Contrast IV Amt: 115 ml optiray 350 EXAM: CT Angiography Neck With Intravenous Contrast CLINICAL HISTORY: Reason for exam: neuro deficit, acute stroke suspected. TECHNIQUE: Routine carotid CT angiography protocol was performed with intravenous contrast. NASCET criteria using the distal ICAs for comparison were used for evaluation of stenoses. CTDI is 36.9 mGy and DLP is 702.46 mGy-cm. Automated exposure control was utilized for the study. A dose lowering technique was utilized adhering to the principles of ALARA. MIP reconstructed images were created and reviewed. CONTRAST: Patient received 115 ml optiray 350 of IV contrast COMPARISON: None. FINDINGS: VASCULATURE: Right common carotid artery: Unremarkable. No occlusion or significant stenosis. No dissection. Right internal carotid artery: Mild to moderate calcified plaque at the right carotid bulb. Mild to moderate calcified plaque at the origin and proximal right internal carotid artery with less than 50% diameter narrowing. Right external carotid artery: Unremarkable. No occlusion. Right vertebral artery: Unremarkable. No occlusion or significant stenosis. No dissection. Left common carotid artery: Unremarkable. No occlusion or significant stenosis. No dissection. Left internal carotid artery: Minimal calcified plaque at the origin of the left internal carotid artery with no stenosis. No dissection. Left external carotid artery: Unremarkable. No occlusion. Left vertebral artery: Dominant left-sided vertebral artery. No occlusion or significant stenosis. No dissection. Aorta: Atherosclerotic disease throughout the aorta with no dissection or aneurysm. NECK: Bones/joints: Unremarkable. Soft tissues: Unremarkable. Lung apices: Clear. CAROTID STENOSIS REFERENCE USING NASCET CRITERIA: % ICA stenosis = (1 - narrowest ICA diameter/diameter of distal cervical ICA) x 100. Mild - <50% stenosis. Moderate - 50-69% stenosis. Severe - 70-94% stenosis. Near occlusion - 95-99% stenosis. Occluded - 100% stenosis. IMPRESSION: Mild atherosclerotic disease predominantly in the carotid bulb region, right more than left otherwise no significant stenosis, occlusion or aneurysm involving the bilateral carotid and vertebral arteries. Electronically signed by: Sushila Yao MD 05/08/23 01:59 AM Brain MRI 05/08/23 06:16 MRI OF THE BRAIN COMBO CLINICAL HISTORY: Dizziness. Loss of balance. COMPARISON STUDY: CT of the brain dated 05/08/2023. TECHNIQUE: MRI of the brain was performed utilizing various T1 and T2-weighted sequences in the axial, sagittal, and coronal planes. Contrast-enhanced sequences were acquired following the administration of 9.7 cc of Gadavist. FINDINGS: Brain parenchyma: There is age-related involutional change noting minimal microangiopathic disease. There is no hemorrhage or mass effect. There is no restricted diffusion to suggest acute ischemia. No enhancing mass lesion is identified on the postcontrast images. Ribeiro-white matter differentiation is preserved. No extra-axial fluid collection is seen. The cerebellar tonsils are normal in configuration. Ventricles, sulci, and cisterns: Prominent secondary to involutional change. Pituitary and sella: Unremarkable. Intracranial vasculature: Normal flow voids are maintained at the skull base. Orbits: The bony orbits are grossly intact. Orbital contents are normal in appearance noting bilateral ocular lens implants. Sinuses and mastoids: There is ismp-yh-iiztttor mucosal thickening within the ethmoid sinuses. The remaining paranasal sinuses and mastoid air cells are clear. Calvarium: Unremarkable. Cervical cord: Partially visualized cervical spinal cord is normal in morphology and signal intensity. IMPRESSION: No acute intracranial abnormality. ACT 112: Negative or not required by law. Electronically signed by: Armando Rios M.D. 05/08/2023 7:55 AM Discharge Instructions Given to Patient (Per Discharging Provider) PLEASE REFER TO YOUR NEW MEDICATION LIST AND FOLLOW INSTRUCTIONS CAREFULLY. STOP ATENOLOL, LOSARTAN, CHLORTHALIDONE. USE LASIX 20MG ONCE A DAY NEEDED FOR LEG SWELLING. PLEASE CALL YOUR PRIMARY CARE PHYSICIAN OR RETURN TO THE ER IF WITH WORSENING OF SYMPTOMS, INCLUDING DIZZINESS, PERSISTENT LEG SWELLING, SHORTNESS OF BREATH, ETC. FOLLOW UP WITH PRIMARY CARE PHYSICIAN THIS COMING WEEK. THE CLINIC WILL BE CALLING YOU SOON FOR THE APPOINTMENT. Total Time Total Time Spent Total Time Spent (In Minutes): >30 minutes
== END 2023-05-10 13:07 | disposition home or self-care (01) | DRG 149 ==
LOC: EDINP 20:41 → ED 20:41 → 4W 05-08 06:16